=== PATIENT | male | born 1960 | race Caucasian/White ===

== ENCOUNTER → 2016-12-26 | Outpatient (REF) | payer SELFPAY ==
[2016-12-26 20:55] LABS: FERRITIN 613 NG/ML (26-388)
== END ==
LOC: M LAB REF 20:02
PROVIDERS: ATTEND Orthopaedic Surgery
DX: Z01.818 Encounter for other preprocedural examination (principal)

== ENCOUNTER → 2017-01-11 | Outpatient (REF) | payer SELFPAY ==
[2017-01-11 11:40] LABS: INR 3.85
== END ==
LOC: M SHH 10:53
PROVIDERS: ATTEND Orthopaedic Surgery
DX: Z51.81 Encounter for therapeutic drug level monitoring (principal); Z79.01 Long term (current) use of anticoagulants

== ENCOUNTER → 2017-01-15 | Outpatient (REF) | payer SELFPAY ==
[2017-01-15 10:17] LABS: INR 1.38
== END ==
LOC: M LAB REF 09:47 → M SHH 09:47
PROVIDERS: ATTEND Orthopaedic Surgery
DX: Z51.81 Encounter for therapeutic drug level monitoring (principal)

== ENCOUNTER → 2017-01-18 | Outpatient (REF) | payer SELFPAY ==
[2017-01-18 11:33] LABS: INR 1.22
== END ==
LOC: M SHH 11:11
PROVIDERS: ATTEND Orthopaedic Surgery
DX: Z51.81 Encounter for therapeutic drug level monitoring (principal); Z79.01 Long term (current) use of anticoagulants

== ENCOUNTER → 2017-01-22 | Outpatient (REF) | payer SELFPAY ==
[2017-01-22 11:08] LABS: INR 1.63
== END ==
LOC: M SHH 10:41
PROVIDERS: ATTEND Orthopaedic Surgery
DX: Z51.81 Encounter for therapeutic drug level monitoring (principal); Z79.01 Long term (current) use of anticoagulants

== ENCOUNTER → 2017-01-25 | Outpatient (REF) | payer SELFPAY ==
[2017-01-25 11:17] LABS: INR 2.03
== END ==
LOC: M SHH 10:41
PROVIDERS: ATTEND Orthopaedic Surgery
DX: Z51.81 Encounter for therapeutic drug level monitoring (principal); Z79.01 Long term (current) use of anticoagulants

== ENCOUNTER → 2017-01-29 | Outpatient (REF) | payer SELFPAY ==
[2017-01-29 12:56] LABS: INR 1.8
== END ==
LOC: M SHH 11:52
PROVIDERS: ATTEND Orthopaedic Surgery
DX: Z51.81 Encounter for therapeutic drug level monitoring (principal); Z79.01 Long term (current) use of anticoagulants

== ENCOUNTER → 2017-02-01 | Outpatient (REF) | payer SELFPAY ==
[2017-02-01 11:31] LABS: INR 1.79
== END ==
LOC: M LAB REF 10:53 → M SHH 10:53
PROVIDERS: ATTEND Orthopaedic Surgery
DX: Z51.81 Encounter for therapeutic drug level monitoring (principal); Z79.01 Long term (current) use of anticoagulants

== ENCOUNTER → 2017-02-05 | Outpatient (REF) | payer SELFPAY ==
[2017-02-05 13:23] LABS: INR 2.1
== END ==
LOC: M SHH 12:47
PROVIDERS: ATTEND Orthopaedic Surgery
DX: Z79.899 Other long term (current) drug therapy (principal)

== ENCOUNTER → 2017-02-08 | Outpatient (REF) | payer SELFPAY ==
[2017-02-08 10:20] LABS: INR 1.63
== END ==
LOC: M SHH 10:03
PROVIDERS: ATTEND Orthopaedic Surgery
DX: Z51.81 Encounter for therapeutic drug level monitoring (principal); Z79.01 Long term (current) use of anticoagulants

== ENCOUNTER → 2017-02-12 | Outpatient (REF) | payer SELFPAY | LOC: M SHH 13:16 | PROVIDERS: ATTEND Orthopaedic Surgery | DX: Z51.81 Encounter for therapeutic drug level monitoring (principal); Z79.01 Long term (current) use of anticoagulants ==

== ENCOUNTER → 2021-08-01 | Outpatient (CLI) | payer SELFPAY ==
--- NOTE | 2021-08-01 10:38 | REP ---
INDICATION: PERSISTENT COUGH COMPARISON: None. TECHNIQUE: PA and lateral. FINDINGS: Ill-defined right perihilar/infrahilar opacities suggesting right middle lobe and possibly right lower lobe infiltrate. No effusion. No pneumothorax. Cardiac silhouette normal. Skeletal structures intact.. IMPRESSION: Ill-defined right perihilar/infrahilar infiltrate. No prior examinations are available for comparison. Correlation with auscultation is recommended along with follow-up to resolution. <Electronically signed by Javier Evans > 08/01/21 0024
== END ==
LOC: M ADAMS 10:13
PROVIDERS: ATTEND Physician Assistant
DX: R91.8 Other nonspecific abnormal finding of lung field (principal); R05 Cough

== ENCOUNTER → 2021-09-05 | Outpatient (CLI) | payer SELFPAY ==
--- NOTE | 2021-09-05 10:34 | REP ---
INDICATION: PNEUMONIA OF RIGHT LOWER LOBE DUE TO INFECTIOUS ORGANISM. COMPARISON: 08/01/2021 TECHNIQUE: PA and lateral FINDINGS: The superior mediastinal structures are midline. The cardiac silhouette is unremarkable in size, shape, and position. The diaphragmatic surfaces of the lungs are regular, and the costophrenic angles are clear. The pulmonary farah are clear. The imaged osseous structures are intact. IMPRESSION: There is no acute cardiopulmonary disease. <Electronically signed by Zeus Hawthorne > 09/05/21 1036
== END ==
LOC: M ADAMS 09:43
PROVIDERS: ATTEND Physician Assistant
DX: J18.9 Pneumonia, unspecified organism (principal)

== ENCOUNTER → 2021-09-05 | Outpatient (REF) | payer SELFPAY ==
[2021-09-05 13:05] LABS: HEMATOCRIT 40.9 % (42.0-52.0); MEAN CORPUSCULAR HEMOGLOBIN 30.5 pg (27.0-33.0); MEAN CORPUSCULAR HGB CONC 34.2 g/dl (32.0-36.5); MEAN CORPUSCULAR VOLUME 89.1 fl (80.0-96.0); PLATELET COUNT, AUTOMATED 223 10^3/uL (150-450); RED BLOOD COUNT 4.59 10^6/uL (4.30-6.10); WHITE BLOOD COUNT 5.5 10^3/uL (4.0-10.0)
[2021-09-05 13:23] LABS: HEMOGLOBIN A1c 13.3 %
[2021-09-05 13:45] LABS: ALBUMIN 3.9 GM/DL (3.2-5.2); ALT/SGPT 19 U/L (12-78); BILIRUBIN,TOTAL 1.2 MG/DL (0.2-1.0); BLOOD UREA NITROGEN 12 MG/DL (7-18); CALCIUM LEVEL 9.6 MG/DL (8.5-10.1); CARBON DIOXIDE LEVEL 27 MEQ/L (21-32); CHLORIDE LEVEL 103 MEQ/L (98-107); CHOLESTEROL LEVEL 307 MG/DL (<200); CHOLESTEROL RISK RATIO 7.487 (<5); CREATININE FOR GFR 0.64 MG/DL (0.70-1.30); GLOMERULAR FILTRATION RATE > 60.0 (>56); GLUCOSE, FASTING 388 MG/DL (70-100); HDL CHOLESTEROL 41 MG/DL (>40); LDL CHOLESTEROL 231 MG/DL (<100); NON-HDL-C 266 MG/DL; POTASSIUM SERUM 4.2 MEQ/L (3.5-5.1); SODIUM LEVEL 136 MEQ/L (136-145); TOTAL PROTEIN 6.9 GM/DL (6.4-8.2); TRIGLYCERIDES LEVEL 173 MG/DL (<150)
== END ==
LOC: M SFHCADAM 09:29
PROVIDERS: ATTEND Physician Assistant
DX: Z00.00 Encounter for general adult medical examination without abnormal findings (principal); Z86.39 Personal history of other endocrine, nutritional and metabolic disease

== ENCOUNTER → 2022-04-24 | Outpatient (REF) | payer SELFPAY ==
[2022-04-24 17:18] LABS: ALBUMIN 3.9 GM/DL (3.2-5.2); ALT/SGPT 20 U/L (12-78); BILIRUBIN,TOTAL 0.9 MG/DL (0.2-1.0); BLOOD UREA NITROGEN 12 MG/DL (7-18); CALCIUM LEVEL 9.1 MG/DL (8.5-10.1); CARBON DIOXIDE LEVEL 25 MEQ/L (21-32); CHLORIDE LEVEL 104 MEQ/L (98-107); CHOLESTEROL LEVEL 235 MG/DL (<200); CREATININE FOR GFR 0.45 MG/DL (0.70-1.30); GLOMERULAR FILTRATION RATE > 60.0 (>56); GLUCOSE, FASTING 127 MG/DL (70-100); HDL CHOLESTEROL 47 MG/DL (>40); LDL CHOLESTEROL 167 MG/DL (<100); NON-HDL-C 188 MG/DL; POTASSIUM SERUM 3.8 MEQ/L (3.5-5.1); SODIUM LEVEL 140 MEQ/L (136-145); TOTAL PROTEIN 6.6 GM/DL (6.4-8.2); TRIGLYCERIDES LEVEL 105 MG/DL (<150)
[2022-04-24 20:57] LABS: HEMOGLOBIN A1c 8.8 %
== END ==
LOC: M SFHCADAM 12:51
PROVIDERS: ATTEND Physician Assistant
DX: E78.2 Mixed hyperlipidemia (principal); E11.65 Type 2 diabetes mellitus with hyperglycemia; Z12.5 Encounter for screening for malignant neoplasm of prostate
CPT/HCPCS: 80053; 80061; 83036; G0103

== ENCOUNTER → 2022-10-05 | Outpatient (CLI) | payer SELFPAY ==
[~2022-10-05] MED LIST: METF500T13; OMEP40CA4 PO; TAMS1CAP17
== END ==
LOC: M LABSMTC 11:00
PROVIDERS: ATTEND Anesthesiology
DX: Z01.812 Encounter for preprocedural laboratory examination (principal); Z11.52 Encounter for screening for COVID-19

== ENCOUNTER 2022-10-10 07:01 | Day surgery (SDC) | payer SELFPAY ==
[~2022-10-10] VITALS: Ht 180.3 cm; Wt 71.6 kg
[~2022-10-10 07:01] MED LIST changes: +NS 1,000 ML IV ONE; +fentaNYL 100 MCG/2 ML INJECTION As Ordered ONE; +propofoL 500 MG/50 ML VIAL As Ordered ONE
[2022-10-10 08:37] VITALS: BP 110/65
== END 2022-10-10 08:37 | disposition home or self-care (01) ==
LOC: M OPP 07:01
PROVIDERS: ATTEND Internal Medicine Gastroenterology
DX: Z12.11 Encounter for screening for malignant neoplasm of colon (principal); K63.5 Polyp of colon; K57.30 Diverticulosis of large intestine without perforation or abscess without bleeding; K64.4 Residual hemorrhoidal skin tags; K64.8 Other hemorrhoids; K22.70 Barrett's esophagus without dysplasia; K31.A19 Gastric intestinal metaplasia without dysplasia, unspecified site; K22.89 Other specified disease of esophagus; K21.00 Gastro-esophageal reflux disease with esophagitis, without bleeding
CPT/HCPCS: 43239; 45380; 88305; J3010

== ENCOUNTER 2023-01-22 08:38 | Inpatient (IN) | payer SELFPAY ==
[~2023-01-22] VITALS: Ht 180.3 cm; Wt 71.5 kg
[~2023-01-22 08:38] MED LIST changes: -METF500T13; +METF500T13 PO; -NS 1,000 ML IV ONE; -fentaNYL 100 MCG/2 ML INJECTION As Ordered ONE; -propofoL 500 MG/50 ML VIAL As Ordered ONE
[2023-01-22] MEDS ORDERED: FLUTISP NARES (09:03)
[2023-01-22] MEDS ORDERED: TAMS1CAP17 PO (09:03)
[2023-01-22] MEDS ORDERED: VANCOMYCIN HCL 1,500 MG in IV FLUID PLACE HOLDER 1 EA IV ONE (12:20)
[2023-01-22] MEDS ORDERED: NS 1,000 ML IV ONE (12:20)
[2023-01-22] MEDS ORDERED: VANCOMYCIN HCL 750 MG, VIAL MATE ADAPTER 1 EACH in D5W 250 ML IV ONE ×6 (12:30)
[2023-01-22] MEDS ORDERED: BOOSTRIX/ADACEL VACCINE (DIPHTH/PERTUSS/ACELL/TETANUS) 0.5ML SYR IM ONE (12:35)
[2023-01-22 12:50] LABS: BASO # 0.1 10^3/uL (0.0-0.2); BASO % 0.5 % (0.0-1.0); EOS % 0.2 % (0.0-3.0); HEMATOCRIT 35.4 % (42.0-52.0); LYMPH % 9.6 % (24.0-44.0); MEAN CORPUSCULAR HEMOGLOBIN 29.8 pg (27.0-33.0); MEAN CORPUSCULAR HGB CONC 33.9 g/dl (32.0-36.5); MEAN CORPUSCULAR VOLUME 87.8 fl (80.0-96.0); MONO # 1.2 10^3/uL (0.0-0.8); MONO % 11.3 % (2.0-8.0); NEUTROPHILS % 77.7 % (36.0-66.0); PLATELET COUNT, AUTOMATED 221 10^3/uL (150-450); RED BLOOD COUNT 4.03 10^6/uL (4.30-6.10); WHITE BLOOD COUNT 10.2 10^3/uL (4.0-10.0)
[2023-01-22 13:00] LABS: ERYTHROCYTE SEDIMENTATION RATE 89 mm/hr (0-20)
[2023-01-22 13:07] LABS: INR 1.13; PROTHROMBIN TIME 14.7 SECONDS (12.5-14.5)
[2023-01-22 13:08] LABS: PARTIAL THROMBOPLASTIN TIME 29.7 SECONDS (24.8-34.2)
[2023-01-22 13:17] LABS: ALBUMIN 2.7 G/DL (3.2-5.2); ALKALINE PHOSPHATASE 102 U/L (46-116); ALT/SGPT 27 U/L (7.0-40); AST/SGOT 19 U/L (<34); BILIRUBIN,DIRECT 0.3 MG/DL (<0.4); BILIRUBIN,TOTAL 0.8 MG/DL (0.3-1.2); BLOOD UREA NITROGEN 21 MG/DL (9-23); CALCIUM LEVEL 7.8 MG/DL (8.3-10.6); CARBON DIOXIDE LEVEL 30 MMOL/L (20-31); CHLORIDE LEVEL 101 MMOL/L (98-107); CREATININE FOR GFR 0.56 MG/DL (0.70-1.30); GLOMERULAR FILTRATION RATE > 60.0 (>49); GLUCOSE, FASTING 331 MG/DL (74-106); POTASSIUM SERUM 3.9 MMOL/L (3.5-5.1); SODIUM LEVEL 138 MMOL/L (136-145); TOTAL PROTEIN 5.9 G/DL (5.7-8.2)
[2023-01-22 13:24] LABS: RSV AMPLIFICATION NEGATIVE (NEGATIVE)
[2023-01-22] MEDS ORDERED: GLUCAGON INJ 1MG VIAL SC PRN (15:45)
[2023-01-22] MEDS ORDERED: GLUCOSE 4GM CHEW TABLET PO PRN (15:45)
[2023-01-22] MEDS ORDERED: PERCOCET 5MG/325MG TAB PO PRN (15:55)
[2023-01-22] MEDS ORDERED: EQL50TAB2 PO (16:16)
[2023-01-22] MEDS ORDERED: HOME MED LIST COMPLETE! XX SCH (16:20)
[2023-01-22] MEDS: PIPERACILLIN/TAZOBACTAM SOD 3.375 GM in D5W MINI-BAG PLUS 50 ML IV SCH ×2 (16:52→23:59)
[2023-01-22 18:15] VITALS: BP 127/73
[2023-01-22 18:26] LABS: CHOLESTEROL RISK RATIO 4.45 (<5); HDL CHOLESTEROL 27.6 MG/DL (>40); LDL CHOLESTEROL 75.8 MG/DL (<100); NON-HDL-C 95.4 MG/DL
[2023-01-22] MEDS: TAMSULOSIN 0.4 MG CAP PO SCH (18:40)
[2023-01-22] MEDS: ATORVASTATIN 20 MG TAB PO SCH (18:40)
[2023-01-22] MEDS: OMEPRAZOLE 20MG CAP PO SCH (18:40)
[2023-01-22] MEDS: INSULIN LISPRO (NovoLOG) PER UNIT SC SCH ×2 (18:40→21:00)
[2023-01-22 21:08] VITALS: BP 125/69
[2023-01-22] MEDS: VANCOMYCIN HCL 750 MG, VIAL MATE ADAPTER 1 EACH in D5W 250 ML IV SCH (21:18)
[2023-01-22] MEDS: ENOXAPARIN 40MG/0.4ML SYRINGE (J1650 PER 10MG) SC SCH (21:19)
[2023-01-22] MEDS: LEVEMIR (INSULIN DETEMIR) 1 UNITS/0.01ML SC SCH (21:19)
[2023-01-23] MEDS: PIPERACILLIN/TAZOBACTAM SOD 3.375 GM in D5W MINI-BAG PLUS 50 ML IV SCH ×4 (04:40→23:55)
[2023-01-23] MEDS: VANCOMYCIN HCL 750 MG, VIAL MATE ADAPTER 1 EACH in D5W 250 ML IV SCH (05:55)
[2023-01-23 06:01] VITALS: BP 111/62
[2023-01-23 06:47] LABS: HEMATOCRIT 32.8 % (42.0-52.0); HEMOGLOBIN 10.9 g/dl (13.5-17.5); MEAN CORPUSCULAR HEMOGLOBIN 29.9 pg (27.0-33.0); MEAN CORPUSCULAR HGB CONC 33.2 g/dl (32.0-36.5); MEAN CORPUSCULAR VOLUME 90.1 fl (80.0-96.0); PLATELET COUNT, AUTOMATED 182 10^3/uL (150-450); RED BLOOD COUNT 3.64 10^6/uL (4.30-6.10); WHITE BLOOD COUNT 10.1 10^3/uL (4.0-10.0)
[2023-01-23] MEDS: ACETAMINOPHEN TAB 650MG DOSE (2X325MG) PO PRN ×2 (06:49→20:36)
[2023-01-23 07:15] LABS: BLOOD UREA NITROGEN 12 MG/DL (9-23); CARBON DIOXIDE LEVEL 26 MMOL/L (20-31); CHLORIDE LEVEL 103 MMOL/L (98-107); CREATININE FOR GFR 0.48 MG/DL (0.70-1.30); GLOMERULAR FILTRATION RATE > 60.0 (>49); GLUCOSE, FASTING 199 MG/DL (74-106); POTASSIUM SERUM 3.5 MMOL/L (3.5-5.1); SODIUM LEVEL 137 MMOL/L (136-145)
[2023-01-23] MEDS: ATORVASTATIN 20 MG TAB PO SCH (07:55)
[2023-01-23] MEDS: TAMSULOSIN 0.4 MG CAP PO SCH (07:55)
[2023-01-23] MEDS: OMEPRAZOLE 20MG CAP PO SCH (07:55)
[2023-01-23] MEDS: INSULIN LISPRO (NovoLOG) PER UNIT SC SCH ×4 (07:55→20:23)
[2023-01-23 14:00] VITALS: BP 118/69
[2023-01-23] MEDS: VANCOMYCIN HCL 1,000 MG, VIAL MATE ADAPTER 1 EACH in D5W 250 ML IV SCH ×2 (14:41→22:25)
[2023-01-23 20:14] VITALS: BP 142/70
[2023-01-23] MEDS: ENOXAPARIN 40MG/0.4ML SYRINGE (J1650 PER 10MG) SC SCH (20:38)
[2023-01-23] MEDS: LEVEMIR (INSULIN DETEMIR) 1 UNITS/0.01ML SC SCH (20:39)
[2023-01-23] MEDS ORDERED: ACETAMINOPHEN 325 MG TAB PO ONE (23:00)
[2023-01-24] MEDS: PIPERACILLIN/TAZOBACTAM SOD 3.375 GM in D5W MINI-BAG PLUS 50 ML IV SCH ×4 (05:22→22:57)
[2023-01-24 05:41] VITALS: BP 114/64
[2023-01-24 06:22] LABS: BASO # 0.1 10^3/uL (0.0-0.2); BASO % 0.4 % (0.0-1.0); EOS # 0.3 10^3/uL (0.0-0.5); EOS % 2.4 % (0.0-3.0); HEMOGLOBIN 10.5 g/dl (13.5-17.5); LYMPH # 1.7 10^3/uL (1.5-5.0); LYMPH % 13.6 % (24.0-44.0); MEAN CORPUSCULAR HEMOGLOBIN 29.9 pg (27.0-33.0); MEAN CORPUSCULAR HGB CONC 33.9 g/dl (32.0-36.5); MEAN CORPUSCULAR VOLUME 88.3 fl (80.0-96.0); MONO % 7.6 % (2.0-8.0); NEUTROPHILS # 9.4 10^3/uL (1.5-8.5); NEUTROPHILS % 75.4 % (36.0-66.0); PLATELET COUNT, AUTOMATED 201 10^3/uL (150-450); RED BLOOD COUNT 3.51 10^6/uL (4.30-6.10); WHITE BLOOD COUNT 12.4 10^3/uL (4.0-10.0)
[2023-01-24] MEDS: VANCOMYCIN HCL 1,000 MG, VIAL MATE ADAPTER 1 EACH in D5W 250 ML IV SCH (06:36)
[2023-01-24 06:52] LABS: BLOOD UREA NITROGEN 12 MG/DL (9-23); CALCIUM LEVEL 8.1 MG/DL (8.3-10.6); CARBON DIOXIDE LEVEL 30 MMOL/L (20-31); CHLORIDE LEVEL 103 MMOL/L (98-107); CREATININE FOR GFR 0.64 MG/DL (0.70-1.30); GLOMERULAR FILTRATION RATE > 60.0 (>49); GLUCOSE, FASTING 147 MG/DL (74-106); MAGNESIUM LEVEL 1.6 MG/DL (1.8-2.4); POTASSIUM SERUM 3.2 MMOL/L (3.5-5.1); SODIUM LEVEL 139 MMOL/L (136-145)
[2023-01-24] MEDS ORDERED: MAG SULF 1GM/100ML (MAG RUN) 1 GM in IV 1 EA IV ONE (08:00)
[2023-01-24] MEDS ORDERED: POTASSIUM CHLORIDE 10MEQ SR TABLET PO ONE (08:00)
[2023-01-24] MEDS: INSULIN LISPRO (NovoLOG) PER UNIT SC SCH ×5 (08:46→21:00)
[2023-01-24] MEDS: ATORVASTATIN 20 MG TAB PO SCH (08:47)
[2023-01-24] MEDS: TAMSULOSIN 0.4 MG CAP PO SCH (08:47)
[2023-01-24] MEDS: OMEPRAZOLE 20MG CAP PO SCH (08:47)
[2023-01-24 14:00] VITALS: BP 124/72
[2023-01-24] MEDS ORDERED: LEVEMIR (INSULIN DETEMIR) 1 UNITS/0.01ML SC SCH (21:00)
[2023-01-24 21:34] VITALS: BP 124/69
[2023-01-25] VITALS (9 sets, daily range): BP systolic 88–143; BP diastolic 42–81
[2023-01-25] MEDS: PIPERACILLIN/TAZOBACTAM SOD 3.375 GM in D5W MINI-BAG PLUS 50 ML IV SCH ×4 (05:40→23:48)
[2023-01-25 06:11] LABS: BASO % 0.3 % (0.0-1.0); EOS # 0.6 10^3/uL (0.0-0.5); EOS % 5.1 % (0.0-3.0); HEMATOCRIT 31.7 % (42.0-52.0); HEMOGLOBIN 10.4 g/dl (13.5-17.5); LYMPH # 1.3 10^3/uL (1.5-5.0); LYMPH % 12.1 % (24.0-44.0); MEAN CORPUSCULAR HEMOGLOBIN 29.2 pg (27.0-33.0); MEAN CORPUSCULAR HGB CONC 32.8 g/dl (32.0-36.5); MONO # 0.9 10^3/uL (0.0-0.8); MONO % 8.4 % (2.0-8.0); NEUTROPHILS # 8.1 10^3/uL (1.5-8.5); NEUTROPHILS % 73.2 % (36.0-66.0); PLATELET COUNT, AUTOMATED 243 10^3/uL (150-450); RED BLOOD COUNT 3.56 10^6/uL (4.30-6.10)
[2023-01-25 06:34] LABS: BLOOD UREA NITROGEN 12 MG/DL (9-23); CALCIUM LEVEL 8.1 MG/DL (8.3-10.6); CARBON DIOXIDE LEVEL 30 MMOL/L (20-31); CHLORIDE LEVEL 104 MMOL/L (98-107); CREATININE FOR GFR 0.76 MG/DL (0.70-1.30); GLOMERULAR FILTRATION RATE > 60.0 (>49); GLUCOSE, FASTING 240 MG/DL (74-106); MAGNESIUM LEVEL 1.7 MG/DL (1.8-2.4); POTASSIUM SERUM 3.6 MMOL/L (3.5-5.1); SODIUM LEVEL 140 MMOL/L (136-145)
[2023-01-25] MEDS: INSULIN LISPRO (NovoLOG) PER UNIT SC SCH ×7 (07:30→22:08)
[2023-01-25] MEDS: OMEPRAZOLE 20MG CAP PO SCH (07:57)
[2023-01-25] MEDS: TAMSULOSIN 0.4 MG CAP PO SCH (07:57)
[2023-01-25] MEDS: ATORVASTATIN 20 MG TAB PO SCH (07:57)
[2023-01-25] MEDS ORDERED: MAG SULF 1GM/100ML (MAG RUN) 1 GM in IV 1 EA IV ONE (08:00)
[2023-01-25] MEDS ORDERED: BUPIVACAINE HCL 0.5% 30ML VIAL As Ordered ONE (09:50)
[2023-01-25] MEDS ORDERED: LIDOCAINE 1% MDV 20ML VIAL As Ordered ONE (09:50)
[2023-01-25] MEDS ORDERED: fentaNYL 100 MCG/2 ML INJECTION As Ordered ONE (09:58)
[2023-01-25] MEDS ORDERED: MIDAZOLAM INJ 2MG/2ML VIAL As Ordered ONE (09:58)
[2023-01-25] MEDS ORDERED: ONDANSETRON 4MG 2ML VIAL As Ordered ONE (11:10)
[2023-01-25] MEDS ORDERED: propofoL 200 MG/20 ML VIAL As Ordered ONE (11:10)
[2023-01-25] MEDS ORDERED: LIDOCAINE 2% 100MG/5ML SDV (FOR ANES.) As Ordered ONE (11:10)
[2023-01-25] MEDS ORDERED: ZOSYN 3.375GM VIAL As Ordered ONE (11:17)
[2023-01-25] MEDS ORDERED: ACETAMINOPHEN 1000MG 100ML IV BAG As Ordered ONE (11:41)
[2023-01-25] MEDS ORDERED: LR 1,000 ML IV SCH (12:10)
[2023-01-25] MEDS ORDERED: HYDROMORPHONE HCL 0.5 MG/ 0.5 ML SYRINGE IV PRN (12:10)
[2023-01-25] MEDS ORDERED: ONDANSETRON 4MG 2ML VIAL IV PRN (12:10)
[2023-01-25] MEDS ORDERED: oxyCODONE 5MG TAB PO PRN (12:10)
[2023-01-25] MEDS ORDERED: fentaNYL 100 MCG/2 ML INJECTION IV PRN (12:10)
[2023-01-25] MEDS ORDERED: NS 1,000 ML IV ONE (16:40)
[2023-01-25 17:13] LABS: BASO # 0.1 10^3/uL (0.0-0.2); BASO % 0.5 % (0.0-1.0); EOS # 0.7 10^3/uL (0.0-0.5); EOS % 7.6 % (0.0-3.0); HEMATOCRIT 30.5 % (42.0-52.0); LYMPH # 1.9 10^3/uL (1.5-5.0); LYMPH % 21.1 % (24.0-44.0); MEAN CORPUSCULAR HEMOGLOBIN 29.5 pg (27.0-33.0); MEAN CORPUSCULAR HGB CONC 32.8 g/dl (32.0-36.5); MONO # 0.8 10^3/uL (0.0-0.8); MONO % 8.9 % (2.0-8.0); NEUTROPHILS # 5.6 10^3/uL (1.5-8.5); PLATELET COUNT, AUTOMATED 243 10^3/uL (150-450); RED BLOOD COUNT 3.39 10^6/uL (4.30-6.10); WHITE BLOOD COUNT 9.2 10^3/uL (4.0-10.0)
[2023-01-25 17:32] LABS: BLOOD UREA NITROGEN 14 MG/DL (9-23); CALCIUM LEVEL 7.9 MG/DL (8.3-10.6); CARBON DIOXIDE LEVEL 30 MMOL/L (20-31); CHLORIDE LEVEL 106 MMOL/L (98-107); CREATININE FOR GFR 0.71 MG/DL (0.70-1.30); GLOMERULAR FILTRATION RATE > 60.0 (>49); GLUCOSE, FASTING 201 MG/DL (74-106); MAGNESIUM LEVEL 1.8 MG/DL (1.8-2.4); POTASSIUM SERUM 3.5 MMOL/L (3.5-5.1); SODIUM LEVEL 141 MMOL/L (136-145)
[2023-01-25] MEDS ORDERED: LEVEMIR (INSULIN DETEMIR) 1 UNITS/0.01ML SC SCH (21:00)
[2023-01-26 05:09] VITALS: BP 136/77
[2023-01-26] MEDS: PIPERACILLIN/TAZOBACTAM SOD 3.375 GM in D5W MINI-BAG PLUS 50 ML IV SCH ×4 (05:12→23:11)
[2023-01-26 05:57] LABS: BASO # 0.1 10^3/uL (0.0-0.2); BASO % 0.6 % (0.0-1.0); EOS # 0.9 10^3/uL (0.0-0.5); EOS % 7.8 % (0.0-3.0); HEMATOCRIT 30.5 % (42.0-52.0); LYMPH # 1.6 10^3/uL (1.5-5.0); LYMPH % 14.5 % (24.0-44.0); MEAN CORPUSCULAR HEMOGLOBIN 29.7 pg (27.0-33.0); MEAN CORPUSCULAR HGB CONC 32.8 g/dl (32.0-36.5); MEAN CORPUSCULAR VOLUME 90.5 fl (80.0-96.0); MONO # 0.9 10^3/uL (0.0-0.8); MONO % 8.3 % (2.0-8.0); NEUTROPHILS # 7.7 10^3/uL (1.5-8.5); NEUTROPHILS % 67.8 % (36.0-66.0); PLATELET COUNT, AUTOMATED 257 10^3/uL (150-450); RED BLOOD COUNT 3.37 10^6/uL (4.30-6.10); WHITE BLOOD COUNT 11.3 10^3/uL (4.0-10.0)
[2023-01-26 06:22] LABS: BLOOD UREA NITROGEN 12 MG/DL (9-23); CARBON DIOXIDE LEVEL 30 MMOL/L (20-31); CHLORIDE LEVEL 105 MMOL/L (98-107); CREATININE FOR GFR 0.79 MG/DL (0.70-1.30); GLOMERULAR FILTRATION RATE > 60.0 (>49); GLUCOSE, FASTING 73 MG/DL (74-106); MAGNESIUM LEVEL 1.8 MG/DL (1.8-2.4); POTASSIUM SERUM 3.8 MMOL/L (3.5-5.1); SODIUM LEVEL 142 MMOL/L (136-145)
[2023-01-26] MEDS: INSULIN LISPRO (NovoLOG) PER UNIT SC SCH ×6 (07:30→21:00)
[2023-01-26] MEDS: TAMSULOSIN 0.4 MG CAP PO SCH (09:01)
[2023-01-26] MEDS: OMEPRAZOLE 20MG CAP PO SCH (09:01)
[2023-01-26] MEDS: ATORVASTATIN 20 MG TAB PO SCH (09:01)
[2023-01-26 14:30] VITALS: BP 142/70
[2023-01-26] MEDS: ACETAMINOPHEN TAB 650MG DOSE (2X325MG) PO PRN (15:06)
[2023-01-26] MEDS: VANCOMYCIN HCL 1,000 MG, VIAL MATE ADAPTER 1 EACH in NS 250 ML IV SCH (15:52)
[2023-01-26] MEDS ORDERED: INSULIN LISPRO (NovoLOG) PER UNIT SC SCH (17:30)
[2023-01-26] MEDS ORDERED: VANCOMYCIN HCL 500 MG in D5W MINI-BAG PLUS 100 ML IV ONE (18:00)
[2023-01-26] MEDS ORDERED: LEVEMIR (INSULIN DETEMIR) 1 UNITS/0.01ML SC ONE (21:00)
[2023-01-26 21:34] VITALS: BP 110/58
[2023-01-26] MEDS: ENOXAPARIN 40MG/0.4ML SYRINGE (J1650 PER 10MG) SC SCH (21:41)
[2023-01-27] MEDS: VANCOMYCIN HCL 1,000 MG, VIAL MATE ADAPTER 1 EACH in NS 250 ML IV SCH (00:24)
[2023-01-27] MEDS: PIPERACILLIN/TAZOBACTAM SOD 3.375 GM in D5W MINI-BAG PLUS 50 ML IV SCH ×4 (05:02→23:08)
[2023-01-27 06:00] VITALS: BP 130/74
[2023-01-27 07:54] LABS: BASO # 0.1 10^3/uL (0.0-0.2); BASO % 0.5 % (0.0-1.0); EOS # 0.8 10^3/uL (0.0-0.5); HEMATOCRIT 29.7 % (42.0-52.0); HEMOGLOBIN 9.6 g/dl (13.5-17.5); LYMPH # 1.4 10^3/uL (1.5-5.0); LYMPH % 10.6 % (24.0-44.0); MEAN CORPUSCULAR HEMOGLOBIN 29.4 pg (27.0-33.0); MEAN CORPUSCULAR HGB CONC 32.3 g/dl (32.0-36.5); MEAN CORPUSCULAR VOLUME 91.1 fl (80.0-96.0); MONO # 1.1 10^3/uL (0.0-0.8); MONO % 8.3 % (2.0-8.0); NEUTROPHILS # 9.5 10^3/uL (1.5-8.5); NEUTROPHILS % 73.7 % (36.0-66.0); PLATELET COUNT, AUTOMATED 275 10^3/uL (150-450); RED BLOOD COUNT 3.26 10^6/uL (4.30-6.10); WHITE BLOOD COUNT 12.9 10^3/uL (4.0-10.0)
[2023-01-27 07:57] LABS: VANCOMYCIN LEVEL TROUGH 17.6 UG/ML (10.0-20.0)
[2023-01-27 07:58] LABS: BLOOD UREA NITROGEN 12 MG/DL (9-23); CALCIUM LEVEL 7.8 MG/DL (8.3-10.6); CARBON DIOXIDE LEVEL 30 MMOL/L (20-31); CHLORIDE LEVEL 103 MMOL/L (98-107); CREATININE FOR GFR 0.74 MG/DL (0.70-1.30); GLOMERULAR FILTRATION RATE > 60.0 (>49); GLUCOSE, FASTING 86 MG/DL (74-106); MAGNESIUM LEVEL 1.7 MG/DL (1.8-2.4); SODIUM LEVEL 140 MMOL/L (136-145)
[2023-01-27] MEDS ORDERED: MAG SULF 1GM/100ML (MAG RUN) 1 GM in IV 1 EA IV ONE (08:25)
[2023-01-27] MEDS: ATORVASTATIN 20 MG TAB PO SCH (08:51)
[2023-01-27] MEDS: OMEPRAZOLE 20MG CAP PO SCH (08:51)
[2023-01-27] MEDS: metFORMIN (GLUCOPHAGE) 500MG TAB PO SCH (08:51)
[2023-01-27] MEDS: TAMSULOSIN 0.4 MG CAP PO SCH (08:52)
[2023-01-27] MEDS: VANCOMYCIN HCL 1,000 MG, VIAL MATE ADAPTER 1 EACH in D5W 250 ML IV SCH ×2 (10:39→21:36)
[2023-01-27 14:00] VITALS: BP 144/82
[2023-01-27] MEDS: LACTOBACILLUS ACIDOPHILUS CAP (BACID) PO SCH (17:05)
[2023-01-27] MEDS: INSULIN LISPRO (NovoLOG) PER UNIT SC SCH (21:00)
[2023-01-27] MEDS: ENOXAPARIN 40MG/0.4ML SYRINGE (J1650 PER 10MG) SC SCH (21:35)
[2023-01-27] MEDS: LEVEMIR (INSULIN DETEMIR) 1 UNITS/0.01ML SC SCH (21:35)
[2023-01-27 22:00] VITALS: BP 130/72
[2023-01-28] VITALS (7 sets, daily range): BP systolic 124–146; BP diastolic 70–78
[2023-01-28] MEDS: PIPERACILLIN/TAZOBACTAM SOD 3.375 GM in D5W MINI-BAG PLUS 50 ML IV SCH ×4 (04:34→23:22)
[2023-01-28 06:19] LABS: BASO # 0.1 10^3/uL (0.0-0.2); BASO % 0.4 % (0.0-1.0); EOS # 0.6 10^3/uL (0.0-0.5); EOS % 5.4 % (0.0-3.0); HEMATOCRIT 29.4 % (42.0-52.0); HEMOGLOBIN 9.5 g/dl (13.5-17.5); LYMPH # 1.1 10^3/uL (1.5-5.0); MEAN CORPUSCULAR HEMOGLOBIN 29.5 pg (27.0-33.0); MEAN CORPUSCULAR HGB CONC 32.3 g/dl (32.0-36.5); MEAN CORPUSCULAR VOLUME 91.3 fl (80.0-96.0); MONO % 8.5 % (2.0-8.0); NEUTROPHILS # 8.5 10^3/uL (1.5-8.5); NEUTROPHILS % 74.8 % (36.0-66.0); PLATELET COUNT, AUTOMATED 277 10^3/uL (150-450); RED BLOOD COUNT 3.22 10^6/uL (4.30-6.10); WHITE BLOOD COUNT 11.4 10^3/uL (4.0-10.0)
[2023-01-28 07:03] LABS: BLOOD UREA NITROGEN 11 MG/DL (9-23); CALCIUM LEVEL 7.9 MG/DL (8.3-10.6); CARBON DIOXIDE LEVEL 29 MMOL/L (20-31); CHLORIDE LEVEL 105 MMOL/L (98-107); CREATININE FOR GFR 0.75 MG/DL (0.70-1.30); GLOMERULAR FILTRATION RATE > 60.0 (>49); GLUCOSE, FASTING 119 MG/DL (74-106); MAGNESIUM LEVEL 1.7 MG/DL (1.8-2.4); POTASSIUM SERUM 3.5 MMOL/L (3.5-5.1); SODIUM LEVEL 140 MMOL/L (136-145)
[2023-01-28] MEDS: TAMSULOSIN 0.4 MG CAP PO SCH (08:26)
[2023-01-28] MEDS: OMEPRAZOLE 20MG CAP PO SCH (08:26)
[2023-01-28] MEDS: LACTOBACILLUS ACIDOPHILUS CAP (BACID) PO SCH ×2 (08:26→18:00)
[2023-01-28] MEDS: ATORVASTATIN 20 MG TAB PO SCH (08:26)
[2023-01-28] MEDS: metFORMIN (GLUCOPHAGE) 500MG TAB PO SCH (08:27)
[2023-01-28] MEDS ORDERED: MAG SULF 1GM/100ML (MAG RUN) 1 GM in IV 1 EA IV ONE (09:00)
[2023-01-28] MEDS: VANCOMYCIN HCL 1,000 MG, VIAL MATE ADAPTER 1 EACH in D5W 250 ML IV SCH ×2 (10:10→21:39)
[2023-01-28] MEDS ORDERED: BUPIVACAINE HCL 0.5% 30ML VIAL As Ordered ONE (17:18)
[2023-01-28] MEDS ORDERED: LIDOCAINE 1% SDV 30ML VIAL As Ordered ONE (17:18)
[2023-01-28] MEDS ORDERED: MIDAZOLAM INJ 2MG/2ML VIAL As Ordered ONE (18:38)
[2023-01-28] MEDS ORDERED: fentaNYL 100 MCG/2 ML INJECTION As Ordered ONE (18:38)
[2023-01-28] MEDS ORDERED: propofoL 200 MG/20 ML VIAL As Ordered ONE (18:38)
[2023-01-28] MEDS: LEVEMIR (INSULIN DETEMIR) 1 UNITS/0.01ML SC SCH (21:00)
[2023-01-28] MEDS: INSULIN LISPRO (NovoLOG) PER UNIT SC SCH (21:00)
[2023-01-28] MEDS: ENOXAPARIN 40MG/0.4ML SYRINGE (J1650 PER 10MG) SC SCH (21:36)
[2023-01-29 00:15] VITALS: BP 132/74
[2023-01-29 02:00] VITALS: BP 140/80
[2023-01-29] MEDS: PIPERACILLIN/TAZOBACTAM SOD 3.375 GM in D5W MINI-BAG PLUS 50 ML IV SCH (04:49)
[2023-01-29] MEDS ORDERED: **hydrALAZINE** 10 MG TAB PO ONE (05:00)
[2023-01-29] MEDS ORDERED: CALCIUM CARBONATE 500 MG CHEW U/D PO ONE (05:00)
[2023-01-29 06:00] VITALS: BP 164/82
[2023-01-29 06:13] LABS: BASO # 0.1 10^3/uL (0.0-0.2); BASO % 0.6 % (0.0-1.0); EOS # 0.5 10^3/uL (0.0-0.5); EOS % 4.4 % (0.0-3.0); HEMATOCRIT 30.7 % (42.0-52.0); HEMOGLOBIN 9.9 g/dl (13.5-17.5); LYMPH # 0.9 10^3/uL (1.5-5.0); LYMPH % 7.4 % (24.0-44.0); MEAN CORPUSCULAR HEMOGLOBIN 29.4 pg (27.0-33.0); MEAN CORPUSCULAR HGB CONC 32.2 g/dl (32.0-36.5); MEAN CORPUSCULAR VOLUME 91.1 fl (80.0-96.0); MONO # 1.1 10^3/uL (0.0-0.8); MONO % 9.3 % (2.0-8.0); NEUTROPHILS # 8.8 10^3/uL (1.5-8.5); NEUTROPHILS % 77.3 % (36.0-66.0); PLATELET COUNT, AUTOMATED 332 10^3/uL (150-450); RED BLOOD COUNT 3.37 10^6/uL (4.30-6.10); WHITE BLOOD COUNT 11.4 10^3/uL (4.0-10.0)
[2023-01-29 06:44] LABS: BLOOD UREA NITROGEN 12 MG/DL (9-23); CARBON DIOXIDE LEVEL 27 MMOL/L (20-31); CHLORIDE LEVEL 104 MMOL/L (98-107); CREATININE FOR GFR 1.17 MG/DL (0.70-1.30); GLOMERULAR FILTRATION RATE > 60.0 (>49); GLUCOSE, FASTING 158 MG/DL (74-106); MAGNESIUM LEVEL 1.8 MG/DL (1.8-2.4); POTASSIUM SERUM 3.6 MMOL/L (3.5-5.1); SODIUM LEVEL 138 MMOL/L (136-145)
[2023-01-29 06:55] VITALS: BP 130/68
[2023-01-29] MEDS: ATORVASTATIN 20 MG TAB PO SCH (08:05)
[2023-01-29] MEDS: LACTOBACILLUS ACIDOPHILUS CAP (BACID) PO SCH ×2 (08:05→18:04)
[2023-01-29] MEDS: TAMSULOSIN 0.4 MG CAP PO SCH (08:06)
[2023-01-29] MEDS: OMEPRAZOLE 20MG CAP PO SCH (08:06)
[2023-01-29] MEDS: metFORMIN (GLUCOPHAGE) 500MG TAB PO SCH (08:06)
[2023-01-29] MEDS: ceFAZolin SOD 2 GM in IV 1 EA IV SCH ×2 (11:07→18:04)
[2023-01-29] MEDS: INSULIN LISPRO (NovoLOG) PER UNIT SC SCH ×3 (12:00→21:00)
[2023-01-29] MEDS: CALCIUM CARBONATE 500 MG CHEW U/D PO PRN ×2 (12:40→21:23)
[2023-01-29 14:00] VITALS: BP 142/78
[2023-01-29] MEDS ORDERED: ONDANSETRON 4MG 2ML VIAL IV ONE (14:20)
[2023-01-29] MEDS: ACETAMINOPHEN TAB 650MG DOSE (2X325MG) PO PRN (14:29)
[2023-01-29] MEDS ORDERED: NS 1,000 ML IV SCH (14:40)
[2023-01-29] MEDS: ENOXAPARIN 40MG/0.4ML SYRINGE (J1650 PER 10MG) SC SCH (21:11)
[2023-01-29] MEDS: LEVEMIR (INSULIN DETEMIR) 1 UNITS/0.01ML SC SCH (21:12)
[2023-01-30 00:43] VITALS: BP 130/68
[2023-01-30] MEDS: ceFAZolin SOD 2 GM in IV 1 EA IV SCH ×3 (03:20→18:28)
[2023-01-30] MEDS: CALCIUM CARBONATE 500 MG CHEW U/D PO PRN ×2 (03:25→17:53)
[2023-01-30] MEDS: ONDANSETRON 4MG 2ML VIAL IV PRN ×2 (04:17→12:17)
[2023-01-30 06:07] LABS: BASO # 0.1 10^3/uL (0.0-0.2); BASO % 0.6 % (0.0-1.0); EOS # 0.3 10^3/uL (0.0-0.5); EOS % 2.1 % (0.0-3.0); HEMATOCRIT 28.3 % (42.0-52.0); HEMOGLOBIN 9.1 g/dl (13.5-17.5); LYMPH # 1.1 10^3/uL (1.5-5.0); LYMPH % 8.4 % (24.0-44.0); MEAN CORPUSCULAR HEMOGLOBIN 29.2 pg (27.0-33.0); MEAN CORPUSCULAR HGB CONC 32.2 g/dl (32.0-36.5); MEAN CORPUSCULAR VOLUME 90.7 fl (80.0-96.0); MONO # 1.1 10^3/uL (0.0-0.8); MONO % 8.9 % (2.0-8.0); PLATELET COUNT, AUTOMATED 340 10^3/uL (150-450); RED BLOOD COUNT 3.12 10^6/uL (4.30-6.10); WHITE BLOOD COUNT 12.6 10^3/uL (4.0-10.0)
[2023-01-30 06:26] LABS: BLOOD UREA NITROGEN 13 MG/DL (9-23); CALCIUM LEVEL 7.6 MG/DL (8.3-10.6); CARBON DIOXIDE LEVEL 29 MMOL/L (20-31); CHLORIDE LEVEL 105 MMOL/L (98-107); CREATININE FOR GFR 1.24 MG/DL (0.70-1.30); GLOMERULAR FILTRATION RATE > 60.0 (>49); GLUCOSE, FASTING 107 MG/DL (74-106); MAGNESIUM LEVEL 1.8 MG/DL (1.8-2.4); POTASSIUM SERUM 3.5 MMOL/L (3.5-5.1); SODIUM LEVEL 141 MMOL/L (136-145)
[2023-01-30 07:12] VITALS: BP 123/77
[2023-01-30] MEDS: INSULIN LISPRO (NovoLOG) PER UNIT SC SCH ×4 (07:30→21:00)
[2023-01-30] MEDS: TAMSULOSIN 0.4 MG CAP PO SCH (08:39)
[2023-01-30] MEDS: OMEPRAZOLE 20MG CAP PO SCH (08:39)
[2023-01-30] MEDS: LACTOBACILLUS ACIDOPHILUS CAP (BACID) PO SCH ×2 (08:39→17:48)
[2023-01-30] MEDS: metFORMIN (GLUCOPHAGE) 500MG TAB PO SCH (08:39)
[2023-01-30] MEDS: ATORVASTATIN 20 MG TAB PO SCH (08:39)
[2023-01-30 14:00] VITALS: BP 150/80
[2023-01-30] MEDS: NS 1,000 ML IV SCH (18:33)
[2023-01-30 21:00] VITALS: BP 132/75
[2023-01-30] MEDS: LEVEMIR (INSULIN DETEMIR) 1 UNITS/0.01ML SC SCH (21:06)
[2023-01-30] MEDS: ENOXAPARIN 40MG/0.4ML SYRINGE (J1650 PER 10MG) SC SCH (21:06)
[2023-01-31] MEDS: ceFAZolin SOD 2 GM in IV 1 EA IV SCH ×3 (02:26→18:42)
[2023-01-31 06:48] VITALS: BP 140/72
[2023-01-31] MEDS: ONDANSETRON 4MG 2ML VIAL IV PRN ×2 (06:55→13:08)
[2023-01-31 07:22] LABS: BASO # 0.1 10^3/uL (0.0-0.2); BASO % 0.6 % (0.0-1.0); EOS # 0.3 10^3/uL (0.0-0.5); EOS % 2.8 % (0.0-3.0); HEMATOCRIT 27.8 % (42.0-52.0); HEMOGLOBIN 8.8 g/dl (13.5-17.5); LYMPH # 1.2 10^3/uL (1.5-5.0); LYMPH % 9.5 % (24.0-44.0); MEAN CORPUSCULAR HEMOGLOBIN 28.9 pg (27.0-33.0); MEAN CORPUSCULAR HGB CONC 31.7 g/dl (32.0-36.5); MEAN CORPUSCULAR VOLUME 91.4 fl (80.0-96.0); MONO # 1.1 10^3/uL (0.0-0.8); MONO % 8.9 % (2.0-8.0); NEUTROPHILS # 9.5 10^3/uL (1.5-8.5); NEUTROPHILS % 77.6 % (36.0-66.0); PLATELET COUNT, AUTOMATED 321 10^3/uL (150-450); RED BLOOD COUNT 3.04 10^6/uL (4.30-6.10); WHITE BLOOD COUNT 12.3 10^3/uL (4.0-10.0)
[2023-01-31] MEDS: INSULIN LISPRO (NovoLOG) PER UNIT SC SCH ×4 (07:30→20:40)
[2023-01-31 07:43] LABS: BLOOD UREA NITROGEN 14 MG/DL (9-23); CALCIUM LEVEL 7.8 MG/DL (8.3-10.6); CARBON DIOXIDE LEVEL 27 MMOL/L (20-31); CHLORIDE LEVEL 105 MMOL/L (98-107); CREATININE FOR GFR 1.17 MG/DL (0.70-1.30); GLOMERULAR FILTRATION RATE > 60.0 (>49); GLUCOSE, FASTING 61 MG/DL (74-106); POTASSIUM SERUM 3.4 MMOL/L (3.5-5.1); SODIUM LEVEL 141 MMOL/L (136-145)
[2023-01-31] MEDS: DEXTROSE 50% 50ML SYRINGE IV PRN ×2 (07:47→07:50)
[2023-01-31] MEDS: TAMSULOSIN 0.4 MG CAP PO SCH (08:04)
[2023-01-31] MEDS: LACTOBACILLUS ACIDOPHILUS CAP (BACID) PO SCH ×2 (08:04→17:28)
[2023-01-31] MEDS: ATORVASTATIN 20 MG TAB PO SCH (08:04)
[2023-01-31] MEDS: ASPIRIN 81MG ENTERIC TABLET PO SCH (08:05)
[2023-01-31] MEDS: OMEPRAZOLE 20MG CAP PO SCH (08:05)
[2023-01-31] MEDS: SITagliptin 50 MG TAB (JANUVIA) PO SCH (10:21)
[2023-01-31] MEDS ORDERED: POTASSIUM CHLORIDE 10MEQ SR TABLET PO ONE (10:30)
[2023-01-31 11:08] LABS: TOTAL IRON BINDING CAPACITY 152 UG/DL (250-425)
[2023-01-31 11:11] LABS: FERRITIN 795.4 NG/ML (10.5-307.3); FOLATE 14.33 NG/ML (>5.4); IRON (FE) 11 UG/DL (65-175); PERCENT SATURATION 7.2 % (19.7-50.0)
[2023-01-31 13:22] VITALS: BP 122/80
[2023-01-31] MEDS: NS 1,000 ML IV SCH (16:18)
[2023-01-31 20:35] VITALS: BP 147/86
[2023-01-31] MEDS: ENOXAPARIN 40MG/0.4ML SYRINGE (J1650 PER 10MG) SC SCH (20:49)
[2023-01-31] MEDS ORDERED: LEVEMIR (INSULIN DETEMIR) 1 UNITS/0.01ML SC SCH (21:00)
[2023-01-31] MEDS: CALCIUM CARBONATE 500 MG CHEW U/D PO PRN (21:02)
[2023-02-01] MEDS: ceFAZolin SOD 2 GM in IV 1 EA IV SCH ×3 (02:15→18:08)
[2023-02-01 05:31] VITALS: BP 136/75
[2023-02-01 05:54] LABS: BASO # 0.1 10^3/uL (0.0-0.2); BASO % 0.7 % (0.0-1.0); EOS # 0.4 10^3/uL (0.0-0.5); EOS % 3.7 % (0.0-3.0); HEMATOCRIT 27.9 % (42.0-52.0); HEMOGLOBIN 8.9 g/dl (13.5-17.5); MEAN CORPUSCULAR HEMOGLOBIN 29.2 pg (27.0-33.0); MEAN CORPUSCULAR HGB CONC 31.9 g/dl (32.0-36.5); MEAN CORPUSCULAR VOLUME 91.5 fl (80.0-96.0); MONO % 9.3 % (2.0-8.0); NEUTROPHILS # 8.2 10^3/uL (1.5-8.5); NEUTROPHILS % 76.5 % (36.0-66.0); PLATELET COUNT, AUTOMATED 335 10^3/uL (150-450); RED BLOOD COUNT 3.05 10^6/uL (4.30-6.10); WHITE BLOOD COUNT 10.7 10^3/uL (4.0-10.0)
[2023-02-01 06:26] LABS: BLOOD UREA NITROGEN 14 MG/DL (9-23); CALCIUM LEVEL 7.8 MG/DL (8.3-10.6); CARBON DIOXIDE LEVEL 28 MMOL/L (20-31); CHLORIDE LEVEL 105 MMOL/L (98-107); CREATININE FOR GFR 1.21 MG/DL (0.70-1.30); GLOMERULAR FILTRATION RATE > 60.0 (>49); GLUCOSE, FASTING 205 MG/DL (74-106); POTASSIUM SERUM 3.9 MMOL/L (3.5-5.1); SODIUM LEVEL 140 MMOL/L (136-145)
[2023-02-01] MEDS: SITagliptin 50 MG TAB (JANUVIA) PO SCH (07:39)
[2023-02-01] MEDS: LACTOBACILLUS ACIDOPHILUS CAP (BACID) PO SCH ×2 (07:39→18:08)
[2023-02-01] MEDS: TAMSULOSIN 0.4 MG CAP PO SCH (07:39)
[2023-02-01] MEDS: ASPIRIN 81MG ENTERIC TABLET PO SCH (07:40)
[2023-02-01] MEDS: OMEPRAZOLE 20MG CAP PO SCH (07:40)
[2023-02-01] MEDS: ATORVASTATIN 20 MG TAB PO SCH (07:41)
[2023-02-01] MEDS: INSULIN LISPRO (NovoLOG) PER UNIT SC SCH ×5 (07:42→20:25)
[2023-02-01] MEDS: LEVEMIR (INSULIN DETEMIR) 1 UNITS/0.01ML SC SCH (09:40)
[2023-02-01] MEDS: FERROUS SULFATE 325MG TAB PO SCH (10:30)
[2023-02-01] MEDS: NS 1,000 ML IV SCH (10:30)
[2023-02-01] MEDS ORDERED: TRAD5TAB PO (12:07)
[2023-02-01] MEDS ORDERED: BASA100I SC (12:07)
[2023-02-01] MEDS ORDERED: SITA50TAB PO (12:07)
[2023-02-01] MEDS ORDERED: TRES1INJ2 SC (12:07)
[2023-02-01] MEDS ORDERED: TOUJ1.2I SC (12:07)
[2023-02-01] MEDS ORDERED: LANTINJ4 SC (12:07)
[2023-02-01] MEDS ORDERED: INSU100I6 SC (12:07)
[2023-02-01] MEDS ORDERED: ONGL1TAB9 PO (12:07)
[2023-02-01] MEDS ORDERED: INSU100I34 SQ (12:07)
[2023-02-01] MEDS: ACETAMINOPHEN TAB 650MG DOSE (2X325MG) PO PRN (13:53)
[2023-02-01] MEDS: CALCIUM CARBONATE 500 MG CHEW U/D PO PRN (13:54)
[2023-02-01 14:00] VITALS: BP 134/80
[2023-02-01] MEDS: ENOXAPARIN 40MG/0.4ML SYRINGE (J1650 PER 10MG) SC SCH (20:17)
[2023-02-01 20:26] VITALS: BP 138/82
[2023-02-02] VITALS (7 sets, daily range): BP systolic 132–190; BP diastolic 66–100
[2023-02-02] MEDS: ceFAZolin SOD 2 GM in IV 1 EA IV SCH ×3 (02:23→18:21)
[2023-02-02] MEDS: CALCIUM CARBONATE 500 MG CHEW U/D PO PRN ×2 (02:28→07:39)
[2023-02-02 06:59] LABS: BASO # 0.1 10^3/uL (0.0-0.2); BASO % 0.5 % (0.0-1.0); EOS # 0.4 10^3/uL (0.0-0.5); HEMATOCRIT 27.9 % (42.0-52.0); LYMPH # 0.8 10^3/uL (1.5-5.0); LYMPH % 8.1 % (24.0-44.0); MEAN CORPUSCULAR HEMOGLOBIN 29.7 pg (27.0-33.0); MEAN CORPUSCULAR HGB CONC 32.3 g/dl (32.0-36.5); MEAN CORPUSCULAR VOLUME 92.1 fl (80.0-96.0); MONO # 0.9 10^3/uL (0.0-0.8); MONO % 8.3 % (2.0-8.0); NEUTROPHILS # 8.1 10^3/uL (1.5-8.5); NEUTROPHILS % 78.3 % (36.0-66.0); PLATELET COUNT, AUTOMATED 353 10^3/uL (150-450); RED BLOOD COUNT 3.03 10^6/uL (4.30-6.10); WHITE BLOOD COUNT 10.3 10^3/uL (4.0-10.0)
[2023-02-02] MEDS: INSULIN LISPRO (NovoLOG) PER UNIT SC SCH ×4 (07:30→20:32)
[2023-02-02 07:33] LABS: BLOOD UREA NITROGEN 15 MG/DL (9-23); CALCIUM LEVEL 8.1 MG/DL (8.3-10.6); CARBON DIOXIDE LEVEL 27 MMOL/L (20-31); CHLORIDE LEVEL 106 MMOL/L (98-107); CREATININE FOR GFR 1.07 MG/DL (0.70-1.30); GLOMERULAR FILTRATION RATE > 60.0 (>49); GLUCOSE, FASTING 192 MG/DL (74-106); MAGNESIUM LEVEL 1.6 MG/DL (1.8-2.4); SODIUM LEVEL 141 MMOL/L (136-145)
[2023-02-02] MEDS: LACTOBACILLUS ACIDOPHILUS CAP (BACID) PO SCH ×2 (08:00→18:21)
[2023-02-02] MEDS: MAG SULF 1GM/100ML (MAG RUN) 1 GM in IV 1 EA IV SCH ×2 (08:04→15:41)
[2023-02-02] MEDS ORDERED: fentaNYL 100 MCG/2 ML INJECTION As Ordered ONE (08:24)
[2023-02-02] MEDS ORDERED: HEPARIN 1,000UNITS/ML 10ML VIAL (FOR RADIOLOGY & DIALYSIS ONLY) As Ordered ONE (08:25)
[2023-02-02] MEDS ORDERED: LIDOCAINE 1% MDV 20ML VIAL As Ordered ONE (08:25)
[2023-02-02] MEDS ORDERED: ISOVUE-300 61% 100ML VIAL As Ordered ONE (08:25)
[2023-02-02] MEDS ORDERED: MIDAZOLAM INJ 2MG/2ML VIAL As Ordered ONE (08:25)
[2023-02-02] MEDS: LEVEMIR (INSULIN DETEMIR) 1 UNITS/0.01ML SC SCH (09:00)
[2023-02-02] MEDS ORDERED: NITROGLYCERIN IN D5W 25MG/250ML (100MCG/ML) As Ordered ONE (11:03)
[2023-02-02] MEDS ORDERED: PAPAVERINE HCL 60MG 2ML VIAL (30MG/ML) INJ ONE (13:00)
[2023-02-02] MEDS: **hydrALAZINE HCL** 25 MG TAB PO SCH ×2 (15:04→22:00)
[2023-02-02] MEDS ORDERED: CLOPIDOGREL 300 MG TAB (PLAVIX) PO STA (15:26)
[2023-02-02] MEDS ORDERED: MAGNESIUM SULFATE 1GM/100ML D5W BAG (10MG/ML) As Ordered ONE (15:38)
[2023-02-02] MEDS: FERROUS SULFATE 325MG TAB PO SCH (17:14)
[2023-02-02] MEDS: ACETAMINOPHEN TAB 650MG DOSE (2X325MG) PO PRN ×2 (17:15→20:32)
[2023-02-02] MEDS: ASPIRIN 81MG ENTERIC TABLET PO SCH (17:15)
[2023-02-02] MEDS: ATORVASTATIN 20 MG TAB PO SCH (17:15)
[2023-02-02] MEDS: SITagliptin 50 MG TAB (JANUVIA) PO SCH (17:17)
[2023-02-02] MEDS: TAMSULOSIN 0.4 MG CAP PO SCH (17:17)
[2023-02-02] MEDS: ONDANSETRON 4MG 2ML VIAL IV PRN (18:27)
[2023-02-02] MEDS: ENOXAPARIN 40MG/0.4ML SYRINGE (J1650 PER 10MG) SC SCH (20:32)
[2023-02-03] MEDS: ceFAZolin SOD 2 GM in IV 1 EA IV SCH ×3 (03:21→18:23)
[2023-02-03] MEDS: **hydrALAZINE HCL** 25 MG TAB PO SCH ×3 (05:15→21:40)
[2023-02-03 06:00] VITALS: BP 140/76
[2023-02-03 06:40] LABS: BASO # 0.1 10^3/uL (0.0-0.2); BASO % 0.8 % (0.0-1.0); EOS # 0.5 10^3/uL (0.0-0.5); EOS % 4.4 % (0.0-3.0); HEMOGLOBIN 8.5 g/dl (13.5-17.5); LYMPH # 0.9 10^3/uL (1.5-5.0); LYMPH % 8.5 % (24.0-44.0); MEAN CORPUSCULAR HEMOGLOBIN 29.6 pg (27.0-33.0); MEAN CORPUSCULAR HGB CONC 32.7 g/dl (32.0-36.5); MEAN CORPUSCULAR VOLUME 90.6 fl (80.0-96.0); MONO # 0.8 10^3/uL (0.0-0.8); MONO % 7.8 % (2.0-8.0); NEUTROPHILS # 7.9 10^3/uL (1.5-8.5); NEUTROPHILS % 77.8 % (36.0-66.0); PLATELET COUNT, AUTOMATED 359 10^3/uL (150-450); RED BLOOD COUNT 2.87 10^6/uL (4.30-6.10); WHITE BLOOD COUNT 10.2 10^3/uL (4.0-10.0)
[2023-02-03 07:08] LABS: BLOOD UREA NITROGEN 12 MG/DL (9-23); CALCIUM LEVEL 7.8 MG/DL (8.3-10.6); CARBON DIOXIDE LEVEL 27 MMOL/L (20-31); CHLORIDE LEVEL 104 MMOL/L (98-107); GLOMERULAR FILTRATION RATE > 60.0 (>49); GLUCOSE, FASTING 140 MG/DL (74-106); POTASSIUM SERUM 3.8 MMOL/L (3.5-5.1); SODIUM LEVEL 138 MMOL/L (136-145)
[2023-02-03] MEDS: INSULIN LISPRO (NovoLOG) PER UNIT SC SCH ×4 (07:30→20:33)
[2023-02-03] MEDS: LACTOBACILLUS ACIDOPHILUS CAP (BACID) PO SCH ×2 (08:28→18:23)
[2023-02-03] MEDS: CLOPIDOGREL 75 MG TAB PO SCH (08:28)
[2023-02-03] MEDS: TAMSULOSIN 0.4 MG CAP PO SCH (08:28)
[2023-02-03] MEDS: ATORVASTATIN 20 MG TAB PO SCH (08:28)
[2023-02-03] MEDS: FERROUS SULFATE 325MG TAB PO SCH (08:28)
[2023-02-03] MEDS: PANTOPRAZOLE 20 MG TAB PO SCH (08:28)
[2023-02-03] MEDS: ASPIRIN 81MG ENTERIC TABLET PO SCH (08:28)
[2023-02-03] MEDS: SITagliptin 50 MG TAB (JANUVIA) PO SCH (08:28)
[2023-02-03] MEDS: LEVEMIR (INSULIN DETEMIR) 1 UNITS/0.01ML SC SCH (08:29)
[2023-02-03] MEDS: CALCIUM CARBONATE 500 MG CHEW U/D PO PRN ×2 (11:35→20:31)
[2023-02-03] MEDS: ONDANSETRON 4MG 2ML VIAL IV PRN (13:40)
[2023-02-03 14:00] VITALS: BP 138/72
[2023-02-03 21:13] VITALS: BP 112/60
[2023-02-04] VITALS (8 sets, daily range): BP systolic 124–189; BP diastolic 68–92
[2023-02-04] MEDS ORDERED: NS 1,000 ML IV ONE
[2023-02-04] MEDS: ceFAZolin SOD 2 GM in IV 1 EA IV SCH ×3 (02:09→18:09)
[2023-02-04] MEDS: **hydrALAZINE HCL** 25 MG TAB PO SCH ×3 (05:38→21:58)
[2023-02-04 06:48] LABS: BASO # 0.1 10^3/uL (0.0-0.2); BASO % 1.1 % (0.0-1.0); EOS # 0.3 10^3/uL (0.0-0.5); EOS % 3.2 % (0.0-3.0); HEMATOCRIT 25.4 % (42.0-52.0); HEMOGLOBIN 8.1 g/dl (13.5-17.5); LYMPH # 1.1 10^3/uL (1.5-5.0); LYMPH % 11.7 % (24.0-44.0); MEAN CORPUSCULAR HEMOGLOBIN 28.9 pg (27.0-33.0); MEAN CORPUSCULAR HGB CONC 31.9 g/dl (32.0-36.5); MEAN CORPUSCULAR VOLUME 90.7 fl (80.0-96.0); MONO # 0.8 10^3/uL (0.0-0.8); MONO % 8.9 % (2.0-8.0); NEUTROPHILS # 6.8 10^3/uL (1.5-8.5); NEUTROPHILS % 74.3 % (36.0-66.0); PLATELET COUNT, AUTOMATED 375 10^3/uL (150-450); WHITE BLOOD COUNT 9.1 10^3/uL (4.0-10.0)
[2023-02-04 07:09] LABS: BLOOD UREA NITROGEN 14 MG/DL (9-23); CALCIUM LEVEL 8.1 MG/DL (8.3-10.6); CARBON DIOXIDE LEVEL 28 MMOL/L (20-31); CHLORIDE LEVEL 105 MMOL/L (98-107); CREATININE FOR GFR 1.07 MG/DL (0.70-1.30); GLOMERULAR FILTRATION RATE > 60.0 (>49); GLUCOSE, FASTING 185 MG/DL (74-106); POTASSIUM SERUM 3.7 MMOL/L (3.5-5.1); SODIUM LEVEL 137 MMOL/L (136-145)
[2023-02-04] MEDS: INSULIN LISPRO (NovoLOG) PER UNIT SC SCH ×4 (07:30→21:00)
[2023-02-04 07:34] LABS: MAGNESIUM LEVEL 1.7 MG/DL (1.8-2.4)
[2023-02-04] MEDS ORDERED: LIDOCAINE 1% SDV 30ML VIAL As Ordered ONE (07:47)
[2023-02-04] MEDS ORDERED: BUPIVACAINE HCL 0.5% 30ML VIAL As Ordered ONE (07:47)
[2023-02-04] MEDS ORDERED: LIDOCAINE 2% 100MG/5ML SDV (FOR ANES.) As Ordered ONE (07:47)
[2023-02-04] MEDS ORDERED: propofoL 500 MG/50 ML VIAL As Ordered ONE (07:48)
[2023-02-04] MEDS ORDERED: MIDAZOLAM INJ 2MG/2ML VIAL As Ordered ONE (07:48)
[2023-02-04] MEDS ORDERED: fentaNYL 100 MCG/2 ML INJECTION As Ordered ONE (07:48)
[2023-02-04] MEDS ORDERED: HYDROMORPHONE HCL 0.5 MG/ 0.5 ML SYRINGE IV PRN (09:05)
[2023-02-04] MEDS ORDERED: fentaNYL 100 MCG/2 ML INJECTION IV PRN (09:05)
[2023-02-04] MEDS ORDERED: ONDANSETRON 4MG 2ML VIAL IV PRN (09:05)
[2023-02-04] MEDS ORDERED: oxyCODONE 5MG TAB PO PRN (09:05)
[2023-02-04] MEDS: TAMSULOSIN 0.4 MG CAP PO SCH (10:35)
[2023-02-04] MEDS: FERROUS SULFATE 325MG TAB PO SCH (10:35)
[2023-02-04] MEDS: SITagliptin 50 MG TAB (JANUVIA) PO SCH (10:35)
[2023-02-04] MEDS: CLOPIDOGREL 75 MG TAB PO SCH (10:35)
[2023-02-04] MEDS: LEVEMIR (INSULIN DETEMIR) 1 UNITS/0.01ML SC SCH (10:36)
[2023-02-04] MEDS: ASPIRIN 81MG ENTERIC TABLET PO SCH (10:36)
[2023-02-04] MEDS: ATORVASTATIN 20 MG TAB PO SCH (10:36)
[2023-02-04] MEDS: PANTOPRAZOLE 20 MG TAB PO SCH (10:36)
[2023-02-04] MEDS: LACTOBACILLUS ACIDOPHILUS CAP (BACID) PO SCH ×2 (10:38→18:08)
[2023-02-04] MEDS: MAG SULF 1GM/100ML (MAG RUN) 1 GM in IV 1 EA IV SCH ×2 (12:21→13:52)
[2023-02-04] MEDS: LOSARTAN 25 MG TAB PO SCH (13:51)
[2023-02-04] MEDS: ENOXAPARIN 40MG/0.4ML SYRINGE (J1650 PER 10MG) SC SCH (21:57)
[2023-02-05] VITALS (10 sets, daily range): BP systolic 129–164; BP diastolic 70–86
[2023-02-05] MEDS: ceFAZolin SOD 2 GM in IV 1 EA IV SCH ×3 (03:17→20:26)
[2023-02-05] MEDS: **hydrALAZINE HCL** 25 MG TAB PO SCH (05:08)
[2023-02-05 06:12] LABS: BASO # 0.1 10^3/uL (0.0-0.2); BASO % 1.3 % (0.0-1.0); EOS # 0.4 10^3/uL (0.0-0.5); EOS % 5.4 % (0.0-3.0); HEMATOCRIT 24.6 % (42.0-52.0); LYMPH # 1.1 10^3/uL (1.5-5.0); LYMPH % 14.3 % (24.0-44.0); MEAN CORPUSCULAR HEMOGLOBIN 29.5 pg (27.0-33.0); MEAN CORPUSCULAR HGB CONC 32.5 g/dl (32.0-36.5); MEAN CORPUSCULAR VOLUME 90.8 fl (80.0-96.0); MONO # 0.8 10^3/uL (0.0-0.8); MONO % 9.8 % (2.0-8.0); NEUTROPHILS # 5.4 10^3/uL (1.5-8.5); NEUTROPHILS % 68.3 % (36.0-66.0); PLATELET COUNT, AUTOMATED 385 10^3/uL (150-450); RED BLOOD COUNT 2.71 10^6/uL (4.30-6.10); WHITE BLOOD COUNT 7.9 10^3/uL (4.0-10.0)
[2023-02-05 06:42] LABS: BLOOD UREA NITROGEN 13 MG/DL (9-23); CALCIUM LEVEL 7.8 MG/DL (8.3-10.6); CARBON DIOXIDE LEVEL 29 MMOL/L (20-31); CHLORIDE LEVEL 105 MMOL/L (98-107); CREATININE FOR GFR 1.03 MG/DL (0.70-1.30); GLOMERULAR FILTRATION RATE > 60.0 (>49); GLUCOSE, FASTING 139 MG/DL (74-106); POTASSIUM SERUM 3.6 MMOL/L (3.5-5.1); SODIUM LEVEL 136 MMOL/L (136-145)
[2023-02-05] MEDS: INSULIN LISPRO (NovoLOG) PER UNIT SC SCH ×4 (07:27→21:00)
[2023-02-05] MEDS ORDERED: POTASSIUM CHLORIDE 10MEQ SR TABLET PO ONE (07:40)
[2023-02-05 08:06] LABS: MAGNESIUM LEVEL 1.8 MG/DL (1.8-2.4)
[2023-02-05] MEDS: CLOPIDOGREL 75 MG TAB PO SCH (08:30)
[2023-02-05] MEDS: LEVEMIR (INSULIN DETEMIR) 1 UNITS/0.01ML SC SCH (08:30)
[2023-02-05] MEDS: SITagliptin 50 MG TAB (JANUVIA) PO SCH (08:31)
[2023-02-05] MEDS: ASPIRIN 81MG ENTERIC TABLET PO SCH (08:31)
[2023-02-05] MEDS: LACTOBACILLUS ACIDOPHILUS CAP (BACID) PO SCH ×2 (08:31→19:07)
[2023-02-05] MEDS: TAMSULOSIN 0.4 MG CAP PO SCH (08:31)
[2023-02-05] MEDS: ATORVASTATIN 20 MG TAB PO SCH (08:31)
[2023-02-05] MEDS: PANTOPRAZOLE 20 MG TAB PO SCH (08:31)
[2023-02-05] MEDS: FERROUS SULFATE 325MG TAB PO SCH (08:31)
[2023-02-05] MEDS: LOSARTAN 25 MG TAB PO SCH (08:32)
[2023-02-05] MEDS: ONDANSETRON 4MG 2ML VIAL IV PRN (10:42)
[2023-02-05] MEDS ORDERED: **hydrALAZINE HCL** 25 MG TAB PO PRN (11:25)
[2023-02-05] MEDS ORDERED: MAGNESIUM OXIDE 400MG TAB (MAG-OX) PO ONE (15:00)
[2023-02-05] MEDS ORDERED: ATOR1TAB21 PO (15:24)
[2023-02-05] MEDS ORDERED: ASPI81TAEC PO (15:24)
[2023-02-05] MEDS ORDERED: CLOP75TA2 PO (15:24)
[2023-02-05] MEDS ORDERED: FLOM0.4C39 PO (15:25)
[2023-02-05] MEDS ORDERED: COZA50TA PO (15:25)
[2023-02-05] MEDS ORDERED: PERCOCET PO (15:25)
[2023-02-05] MEDS ORDERED: FERR1TAB8 PO (15:25)
[2023-02-05] MEDS: ENOXAPARIN 40MG/0.4ML SYRINGE (J1650 PER 10MG) SC SCH (21:41)
[2023-02-06 05:41] LABS: BASO # 0.1 10^3/uL (0.0-0.2); BASO % 1.7 % (0.0-1.0); EOS # 0.5 10^3/uL (0.0-0.5); EOS % 6.8 % (0.0-3.0); HEMATOCRIT 27.1 % (42.0-52.0); HEMOGLOBIN 8.8 g/dl (13.5-17.5); LYMPH # 1.1 10^3/uL (1.5-5.0); MEAN CORPUSCULAR HEMOGLOBIN 29.2 pg (27.0-33.0); MEAN CORPUSCULAR HGB CONC 32.5 g/dl (32.0-36.5); MONO # 0.8 10^3/uL (0.0-0.8); MONO % 10.9 % (2.0-8.0); NEUTROPHILS % 65.6 % (36.0-66.0); PLATELET COUNT, AUTOMATED 366 10^3/uL (150-450); RED BLOOD COUNT 3.01 10^6/uL (4.30-6.10); WHITE BLOOD COUNT 7.6 10^3/uL (4.0-10.0)
[2023-02-06 06:00] VITALS: BP 128/78
[2023-02-06 06:00] LABS: BLOOD UREA NITROGEN 13 MG/DL (9-23); CARBON DIOXIDE LEVEL 29 MMOL/L (20-31); CHLORIDE LEVEL 105 MMOL/L (98-107); CREATININE FOR GFR 0.96 MG/DL (0.70-1.30); GLOMERULAR FILTRATION RATE > 60.0 (>49); GLUCOSE, FASTING 159 MG/DL (74-106); POTASSIUM SERUM 3.9 MMOL/L (3.5-5.1); SODIUM LEVEL 140 MMOL/L (136-145)
[2023-02-06] MEDS ORDERED: glipiZIDE (GLUCOTROL) 5 MG TAB PO SCH (07:30)
[2023-02-06 08:22] VITALS: BP 152/78
[2023-02-06] MEDS ORDERED: LOSARTAN 50MG TABLET PO SCH (09:00)
[2023-02-06] MEDS: ASPIRIN 81MG ENTERIC TABLET PO SCH (09:22)
[2023-02-06] MEDS: TAMSULOSIN 0.4 MG CAP PO SCH (09:23)
[2023-02-06] MEDS: PANTOPRAZOLE 20 MG TAB PO SCH (09:23)
[2023-02-06] MEDS: LACTOBACILLUS ACIDOPHILUS CAP (BACID) PO SCH (09:24)
[2023-02-06] MEDS: ATORVASTATIN 20 MG TAB PO SCH (09:25)
[2023-02-06 09:28] VITALS: BP 152/78
[2023-02-06] MEDS: FERROUS SULFATE 325MG TAB PO SCH (09:28)
[2023-02-06] MEDS: CLOPIDOGREL 75 MG TAB PO SCH (09:28)
[2023-02-06] MEDS: INSULIN LISPRO (NovoLOG) PER UNIT SC SCH ×2 (09:33→13:32)
[2023-02-06] MEDS: LEVEMIR (INSULIN DETEMIR) 1 UNITS/0.01ML SC SCH (09:34)
[2023-02-06] MEDS: CALCIUM CARBONATE 500 MG CHEW U/D PO PRN (11:25)
[2023-02-06] MEDS ORDERED: ATOR40TA75 PO (12:08)
[2023-02-06] MEDS ORDERED: GLIP5TAB8 PO (12:21)
[2023-02-06] MEDS ORDERED: LANTINJ4 SC (12:25)
[2023-02-06] MEDS ORDERED: LANC30MI XX (12:25)
[2023-02-06] MEDS ORDERED: PEN1MIS21 SC (12:25)
[2023-02-06] MEDS ORDERED: ALCOPAD25 TOP (12:25)
[2023-02-06] MEDS ORDERED: BLOOKIT21 XX (12:25)
[2023-02-06] MEDS ORDERED: GLUC1TES2 XX (12:25)
[2023-02-06] MEDS ORDERED: FREE1MIS32 XX (14:08)
[2023-02-06] MEDS ORDERED: FLAS1EAC MC (14:10)
[2023-02-06] MEDS ORDERED: MAGN400T2 PO (14:24)
[2023-02-06] MEDS ORDERED: MAGNESIUM OXIDE 400MG TAB (MAG-OX) PO SCH (14:25)
[2023-02-07] MEDS ORDERED: LEVEMIR (INSULIN DETEMIR) 1 UNITS/0.01ML SC SCH (09:00)
== END 2023-02-06 15:35 | disposition home health service (06) | DRG 314 ==
LOC: M ED 08:38 → M ED INP 15:43 → ENRESERV 17:06 → M MS5PR 18:10 → OBSVTOIN 01-23 11:09
PROVIDERS: ADMIT Internal Medicine; ATTEND Internal Medicine
PROC: 0HTRXZZ Resection of Toe Nail, External Approach (ICD-10-PCS; 2023-01-22)
PROC: 0Y6Q0Z0 Detachment at Left 1st Toe, Complete, Open Approach (ICD-10-PCS; 2023-01-25)
PROC: 0JBR0ZZ Excision of Left Foot Subcutaneous Tissue and Fascia, Open Approach (ICD-10-PCS; 2023-01-25)
PROC: 0LBV0ZZ Excision of Right Foot Tendon, Open Approach (ICD-10-PCS; 2023-01-28)
PROC: 0QBP0ZZ Excision of Left Metatarsal, Open Approach (ICD-10-PCS; principal; 2023-01-28 17:00)
PROC: 047Q3DZ Dilation of Left Anterior Tibial Artery with Intraluminal Device, Percutaneous Approach (ICD-10-PCS; 2023-02-02)
PROC: 047R3DZ Dilation of Right Posterior Tibial Artery with Intraluminal Device, Percutaneous Approach (ICD-10-PCS; 2023-02-02)
PROC: 047 Lower Arteries, Dilation (ICD-10-PCS; 2023-02-02)
PROC: 04FQ3ZZ Fragmentation of Left Anterior Tibial Artery, Percutaneous Approach (ICD-10-PCS; 2023-02-02)
PROC: 04FS3ZZ Fragmentation of Left Posterior Tibial Artery, Percutaneous Approach (ICD-10-PCS; 2023-02-02)
PROC: 04FY3ZZ Fragmentation of Lower Artery, Percutaneous Approach (ICD-10-PCS; 2023-02-02)
PROC: 0QBP0ZZ Excision of Left Metatarsal, Open Approach (ICD-10-PCS; 2023-02-04)
PROC: 30233N1 Transfusion of Nonautologous Red Blood Cells into Peripheral Vein, Percutaneous Approach (ICD-10-PCS; 2023-02-05)
DX: E11.628 Type 2 diabetes mellitus with other skin complications (principal); N17.9 Acute kidney failure, unspecified; K52.1 Toxic gastroenteritis and colitis; E11.52 Type 2 diabetes mellitus with diabetic peripheral angiopathy with gangrene; E11.65 Type 2 diabetes mellitus with hyperglycemia; M86.8X7 Other osteomyelitis, ankle and foot; E83.42 Hypomagnesemia; L97.529 Non-pressure chronic ulcer of other part of left foot with unspecified severity; E78.5 Hyperlipidemia, unspecified; N40.0 Benign prostatic hyperplasia without lower urinary tract symptoms; D50.9 Iron deficiency anemia, unspecified; T36.95XA Adverse effect of unspecified systemic antibiotic, initial encounter; I10 Essential (primary) hypertension; B95.61 Methicillin susceptible Staphylococcus aureus infection as the cause of diseases classified elsewhere; D63.8 Anemia in other chronic diseases classified elsewhere; K21.9 Gastro-esophageal reflux disease without esophagitis; L08.9 Local infection of the skin and subcutaneous tissue, unspecified; E11.42 Type 2 diabetes mellitus with diabetic polyneuropathy; E11.69 Type 2 diabetes mellitus with other specified complication; E11.621 Type 2 diabetes mellitus with foot ulcer; E11.649 Type 2 diabetes mellitus with hypoglycemia without coma; Z79.899 Other long term (current) drug therapy; Z89.222 Acquired absence of left upper limb above elbow; Z90.49 Acquired absence of other specified parts of digestive tract; Z79.84 Long term (current) use of oral hypoglycemic drugs; Z96.653 Presence of artificial knee joint, bilateral; Z87.81 Personal history of (healed) traumatic fracture

== ENCOUNTER → 2023-03-09 | Outpatient (REF) | payer SELFPAY ==
[~2023-03-09] MED LIST changes: +ALCOPAD25 TOP; +ASPI81TAEC PO; +ATOR1TAB21 PO; +ATOR40TA75 PO; +BASA100I SC; +BLOOKIT21 XX; +CLOP75TA2 PO; +EQL50TAB2 PO; +FERR1TAB8 PO; +FLAS1EAC MC; +FLOM0.4C39 PO; +FLUT50SP17 NARES; +FREE1MIS32 XX; +GLIP5TAB8 PO; +GLUC1TES2 XX; +INSU100I34 SQ; +INSU100I6 SC; +LANC30MI XX; +LANTINJ4 SC; +LOSA-528 PO; +MAGN400T2 PO; +ONGL1TAB9 PO; +PEN1MIS21 SC; +PERCOCET PO; +SITA50TAB PO; +TAMS1CAP17 PO; +TOUJ1.2I SC; +TRAD5TAB PO; +TRES1INJ2 SC
== END ==
LOC: M LAB REF 13:25
PROVIDERS: ATTEND Podiatrist Foot & Ankle Surgery
DX: M86.172 Other acute osteomyelitis, left ankle and foot (principal); L98.9 Disorder of the skin and subcutaneous tissue, unspecified

== ENCOUNTER 2023-03-18 12:47 | Inpatient (IN) | payer SELFPAY ==
[~2023-03-18] VITALS: Ht 180.3 cm; Wt 68.9 kg
[2023-03-18 14:23] LABS: BASO # 0.1 10^3/uL (0.0-0.2); BASO % 0.6 % (0.0-1.0); EOS # 0.2 10^3/uL (0.0-0.5); EOS % 1.5 % (0.0-3.0); HEMATOCRIT 26.4 % (42.0-52.0); HEMOGLOBIN 8.3 g/dl (13.5-17.5); LYMPH # 1.5 10^3/uL (1.5-5.0); LYMPH % 12.2 % (24.0-44.0); MEAN CORPUSCULAR HEMOGLOBIN 27.1 pg (27.0-33.0); MEAN CORPUSCULAR HGB CONC 31.4 g/dl (32.0-36.5); MEAN CORPUSCULAR VOLUME 86.3 fl (80.0-96.0); MONO % 8.2 % (2.0-8.0); NEUTROPHILS # 9.5 10^3/uL (1.5-8.5); NEUTROPHILS % 76.9 % (36.0-66.0); PLATELET COUNT, AUTOMATED 413 10^3/uL (150-450); RED BLOOD COUNT 3.06 10^6/uL (4.30-6.10); WHITE BLOOD COUNT 12.4 10^3/uL (4.0-10.0)
[2023-03-18 14:58] LABS: ERYTHROCYTE SEDIMENTATION RATE 84 mm/hr (0-20)
[2023-03-18 15:33] LABS: BLOOD UREA NITROGEN 24 MG/DL (9-23); CALCIUM LEVEL 8.9 MG/DL (8.3-10.6); CARBON DIOXIDE LEVEL 32 MMOL/L (20-31); CHLORIDE LEVEL 98 MMOL/L (98-107); CREATININE FOR GFR 1.12 MG/DL (0.70-1.30); GLOMERULAR FILTRATION RATE > 60.0 (>49); GLUCOSE, FASTING 117 MG/DL (74-106); POTASSIUM SERUM 4.5 MMOL/L (3.5-5.1); SODIUM LEVEL 134 MMOL/L (136-145)
[2023-03-18] MEDS ORDERED: VANCOMYCIN HCL 1,000 MG, VIAL MATE ADAPTER 1 EACH in D5W 250 ML IV ONE (16:10)
[2023-03-18] MEDS ORDERED: PIPERACILLIN/TAZOBACTAM SOD 4.5 GM in D5W MINI-BAG PLUS 50 ML IV ONE (16:10)
[2023-03-18] MEDS ORDERED: MOM 30ML SUSPENSION UDC PO PRN (16:35)
[2023-03-18] MEDS ORDERED: DEXTROSE 50% 50ML SYRINGE IV PRN (16:35)
[2023-03-18] MEDS ORDERED: GLUCOSE 4GM CHEW TABLET PO PRN (16:35)
[2023-03-18] MEDS ORDERED: GLUCAGON INJ 1MG VIAL SC PRN (16:35)
[2023-03-18] MEDS ORDERED: MORPHINE 2 MG/ML 1ML VIAL IV PRN (17:00)
[2023-03-18 17:08] LABS: RSV AMPLIFICATION NEGATIVE (NEGATIVE)
[2023-03-18] MEDS ORDERED: ACET650T61 PO (17:11)
[2023-03-18] MEDS ORDERED: SF 51.1C MT (17:11)
[2023-03-18] MEDS ORDERED: TAMS1CAP17 PO (17:11)
[2023-03-18] MEDS ORDERED: ATOR80TA59 PO (17:11)
[2023-03-18] MEDS ORDERED: ASPI-226 PO (17:11)
[2023-03-18] MEDS ORDERED: FERR325T19 PO (17:11)
[2023-03-18] MEDS ORDERED: LANTINJ4 SC (17:11)
[2023-03-18] MEDS ORDERED: CLOP75TA2 PO (17:11)
[2023-03-18] MEDS ORDERED: LOSA25TA13 PO (17:11)
[2023-03-18] MEDS ORDERED: MAGN400T35 PO (17:11)
[2023-03-18] MEDS ORDERED: GLIP5TAB8 PO (17:11)
[2023-03-18] MEDS ORDERED: HOME MED LIST COMPLETE! XX SCH (17:15)
[2023-03-18] MEDS ORDERED: PROHANCE 279.3MG/ML 15ML VIAL As Ordered ONE (18:33)
[2023-03-18] MEDS: INSULIN LISPRO (NovoLOG) PER UNIT SC SCH ×2 (20:40→21:00)
[2023-03-18] MEDS: DOCUSATE SODIUM 100MG CAPSULE PO SCH (21:00)
[2023-03-18] MEDS: VANCOMYCIN HCL 1,000 MG, VIAL MATE ADAPTER 1 EACH in D5W 250 ML IV SCH (22:29)
[2023-03-19] MEDS: PIPERACILLIN/TAZOBACTAM SOD 3.375 GM in D5W MINI-BAG PLUS 50 ML IV SCH ×4 (01:55→17:33)
[2023-03-19] MEDS ORDERED: VANCOMYCIN HCL 1,050 MG in IV FLUID PLACE HOLDER 1 EA IV SCH (06:00)
[2023-03-19 06:06] LABS: BLOOD UREA NITROGEN 21 MG/DL (9-23); CALCIUM LEVEL 8.7 MG/DL (8.3-10.6); CARBON DIOXIDE LEVEL 30 MMOL/L (20-31); CHLORIDE LEVEL 98 MMOL/L (98-107); CREATININE FOR GFR 0.92 MG/DL (0.70-1.30); GLOMERULAR FILTRATION RATE > 60.0 (>49); GLUCOSE, FASTING 190 MG/DL (74-106); POTASSIUM SERUM 4.1 MMOL/L (3.5-5.1); SODIUM LEVEL 134 MMOL/L (136-145)
[2023-03-19] MEDS: LEVEMIR (INSULIN DETEMIR) 1 UNITS/0.01ML SC SCH (08:41)
[2023-03-19] MEDS: VANCOMYCIN HCL 1,000 MG, VIAL MATE ADAPTER 1 EACH in D5W 250 ML IV SCH ×2 (08:41→20:34)
[2023-03-19] MEDS: INSULIN LISPRO (NovoLOG) PER UNIT SC SCH ×4 (08:42→21:00)
[2023-03-19] MEDS: DOCUSATE SODIUM 100MG CAPSULE PO SCH ×2 (08:42→20:34)
[2023-03-19] MEDS ORDERED: ENOXAPARIN 40MG/0.4ML SYRINGE (J1650 PER 10MG) SC SCH (09:00)
[2023-03-19 10:30] LABS: BASO # 0.1 10^3/uL (0.0-0.2); BASO % 0.6 % (0.0-1.0); EOS # 0.2 10^3/uL (0.0-0.5); EOS % 1.7 % (0.0-3.0); HEMATOCRIT 24.6 % (42.0-52.0); HEMOGLOBIN 7.8 g/dl (13.5-17.5); LYMPH # 1.3 10^3/uL (1.5-5.0); LYMPH % 11.4 % (24.0-44.0); MEAN CORPUSCULAR HEMOGLOBIN 27.5 pg (27.0-33.0); MEAN CORPUSCULAR HGB CONC 31.7 g/dl (32.0-36.5); MEAN CORPUSCULAR VOLUME 86.6 fl (80.0-96.0); MONO # 1.1 10^3/uL (0.0-0.8); MONO % 9.2 % (2.0-8.0); NEUTROPHILS # 8.9 10^3/uL (1.5-8.5); NEUTROPHILS % 76.4 % (36.0-66.0); PLATELET COUNT, AUTOMATED 390 10^3/uL (150-450); RED BLOOD COUNT 2.84 10^6/uL (4.30-6.10); WHITE BLOOD COUNT 11.7 10^3/uL (4.0-10.0)
[2023-03-19 12:30] VITALS: BP 132/75; TEMP 97.9; O2SAT 98
[2023-03-19] MEDS: CLOPIDOGREL 75 MG TAB PO SCH (14:46)
[2023-03-19] MEDS: ATORVASTATIN 20 MG TAB PO SCH (14:46)
[2023-03-19] MEDS: ASPIRIN 81MG ENTERIC TABLET PO SCH (14:46)
[2023-03-19] MEDS: ACETAMINOPHEN TAB 650MG DOSE (2X325MG) PO PRN (17:33)
[2023-03-19 22:04] VITALS: BP 111/65; TEMP 98.6; O2SAT 96
[2023-03-20] MEDS: PIPERACILLIN/TAZOBACTAM SOD 3.375 GM in D5W MINI-BAG PLUS 50 ML IV SCH ×4 (00:03→18:03)
[2023-03-20 05:52] VITALS: BP 114/65; TEMP 98.8; O2SAT 97
[2023-03-20 06:00] VITALS: BP 120/64; TEMP 97.9; O2SAT 97
[2023-03-20 06:36] LABS: BASO # 0.1 10^3/uL (0.0-0.2); EOS # 0.2 10^3/uL (0.0-0.5); EOS % 1.7 % (0.0-3.0); HEMATOCRIT 23.9 % (42.0-52.0); HEMOGLOBIN 7.5 g/dl (13.5-17.5); LYMPH # 1.1 10^3/uL (1.5-5.0); LYMPH % 10.1 % (24.0-44.0); MEAN CORPUSCULAR HEMOGLOBIN 27.2 pg (27.0-33.0); MEAN CORPUSCULAR HGB CONC 31.4 g/dl (32.0-36.5); MEAN CORPUSCULAR VOLUME 86.6 fl (80.0-96.0); MONO # 0.9 10^3/uL (0.0-0.8); MONO % 8.7 % (2.0-8.0); NEUTROPHILS # 8.2 10^3/uL (1.5-8.5); PLATELET COUNT, AUTOMATED 374 10^3/uL (150-450); RED BLOOD COUNT 2.76 10^6/uL (4.30-6.10); WHITE BLOOD COUNT 10.5 10^3/uL (4.0-10.0)
[2023-03-20 07:02] LABS: BLOOD UREA NITROGEN 17 MG/DL (9-23); CALCIUM LEVEL 8.3 MG/DL (8.3-10.6); CARBON DIOXIDE LEVEL 27 MMOL/L (20-31); CHLORIDE LEVEL 101 MMOL/L (98-107); CREATININE FOR GFR 0.79 MG/DL (0.70-1.30); GLOMERULAR FILTRATION RATE > 60.0 (>49); GLUCOSE, FASTING 268 MG/DL (74-106); MAGNESIUM LEVEL 1.6 MG/DL (1.8-2.4); PHOSPHORUS LEVEL 3.7 MG/DL (2.4-5.1); POTASSIUM SERUM 3.9 MMOL/L (3.5-5.1); SODIUM LEVEL 137 MMOL/L (136-145)
[2023-03-20] MEDS: MAG SULF 1GM/100ML (MAG RUN) 1 GM in IV 1 EA IV SCH ×2 (08:22→09:00)
[2023-03-20] MEDS: ATORVASTATIN 20 MG TAB PO SCH (08:42)
[2023-03-20] MEDS: CLOPIDOGREL 75 MG TAB PO SCH (08:42)
[2023-03-20] MEDS: ASPIRIN 81MG ENTERIC TABLET PO SCH (08:43)
[2023-03-20] MEDS: DOCUSATE SODIUM 100MG CAPSULE PO SCH ×2 (08:43→21:59)
[2023-03-20] MEDS: LEVEMIR (INSULIN DETEMIR) 1 UNITS/0.01ML SC SCH (08:44)
[2023-03-20] MEDS: INSULIN LISPRO (NovoLOG) PER UNIT SC SCH ×4 (08:45→21:00)
[2023-03-20] MEDS ORDERED: MIDAZOLAM INJ 2MG/2ML VIAL As Ordered ONE (10:08)
[2023-03-20] MEDS ORDERED: fentaNYL 100 MCG/2 ML INJECTION As Ordered ONE (10:09)
[2023-03-20] MEDS ORDERED: ACETAMINOPHEN 1000MG 100ML IV BAG As Ordered ONE (10:10)
[2023-03-20] MEDS ORDERED: LIDOCAINE 2% 100MG/5ML SDV (FOR ANES.) As Ordered ONE (10:10)
[2023-03-20] MEDS ORDERED: ONDANSETRON 4MG 2ML VIAL As Ordered ONE (10:10)
[2023-03-20] MEDS ORDERED: propofoL 200 MG/20 ML VIAL As Ordered ONE (10:10)
[2023-03-20] MEDS: VANCOMYCIN HCL 1,000 MG, VIAL MATE ADAPTER 1 EACH in D5W 250 ML IV SCH ×2 (10:15→21:59)
[2023-03-20 10:51] LABS: IRON (FE) 16 UG/DL (65-175); PERCENT SATURATION 8.2 % (19.7-50.0); TOTAL IRON BINDING CAPACITY 195 UG/DL (250-425)
[2023-03-20 10:53] LABS: FERRITIN 663.8 NG/ML (10.5-307.3)
[2023-03-20 10:54] LABS: VITAMIN B12 LEVEL 286 PG/ML (211-911)
[2023-03-20] MEDS ORDERED: LIDOCAINE 1% MDV 20ML VIAL As Ordered ONE (11:04)
[2023-03-20] MEDS ORDERED: fentaNYL 100 MCG/2 ML INJECTION IV PRN (12:20)
[2023-03-20] MEDS ORDERED: ONDANSETRON 4MG 2ML VIAL IV PRN (12:20)
[2023-03-20] MEDS ORDERED: oxyCODONE 5MG TAB PO PRN (12:20)
[2023-03-20] MEDS ORDERED: LR 1,000 ML IV SCH (12:20)
[2023-03-20 14:00] VITALS: BP_SYST 101; BP_SYST 131; BP_DIAS 59; BP_DIAS 77; TEMP 97.7; TEMP 97.9; O2SAT 95; O2SAT 96
[2023-03-20] MEDS ORDERED: MAG SULF 1GM/100ML (MAG RUN) IV ONE ×2 (16:00)
[2023-03-20 16:04] LABS: HEMATOCRIT 24.5 % (42.0-52.0); HEMOGLOBIN 7.7 g/dl (13.5-17.5)
[2023-03-20] MEDS: ACETAMINOPHEN TAB 650MG DOSE (2X325MG) PO PRN ×2 (20:01→23:59)
[2023-03-20 21:28] LABS: HEMATOCRIT 25.4 % (42.0-52.0); HEMOGLOBIN 8.1 g/dl (13.5-17.5)
[2023-03-20 22:00] VITALS: BP 165/61; TEMP 101.7; O2SAT 93
[2023-03-20] MEDS ORDERED: IBUPROFEN 400MG TAB PO ONE (22:00)
[2023-03-20] MEDS: CALCIUM CARBONATE 500 MG CHEW U/D PO PRN (22:06)
[2023-03-21] VITALS (8 sets, daily range): BP systolic 114–149; BP diastolic 54–75; TEMP 98.6–99.9; O2SAT 95–97
[2023-03-21] MEDS: PIPERACILLIN/TAZOBACTAM SOD 3.375 GM in D5W MINI-BAG PLUS 50 ML IV SCH ×6 (00:46→23:49)
[2023-03-21 03:38] LABS: HEMATOCRIT 23.6 % (42.0-52.0); HEMOGLOBIN 7.2 g/dl (13.5-17.5)
[2023-03-21] MEDS: DOCUSATE SODIUM 100MG CAPSULE PO SCH ×2 (08:05→21:24)
[2023-03-21] MEDS: OMEPRAZOLE 20MG CAP PO SCH (08:06)
[2023-03-21] MEDS: FERROUS SULFATE 325MG TAB PO SCH (08:06)
[2023-03-21] MEDS: CLOPIDOGREL 75 MG TAB PO SCH (08:06)
[2023-03-21] MEDS: ATORVASTATIN 20 MG TAB PO SCH (08:06)
[2023-03-21] MEDS: ASPIRIN 81MG ENTERIC TABLET PO SCH (08:06)
[2023-03-21] MEDS: TAMSULOSIN 0.4 MG CAP PO SCH (08:06)
[2023-03-21] MEDS: INSULIN LISPRO (NovoLOG) PER UNIT SC SCH ×4 (08:07→21:00)
[2023-03-21] MEDS: LEVEMIR (INSULIN DETEMIR) 1 UNITS/0.01ML SC SCH (08:07)
[2023-03-21 08:12] LABS: BASO # 0.1 10^3/uL (0.0-0.2); EOS # 0.2 10^3/uL (0.0-0.5); EOS % 1.4 % (0.0-3.0); HEMATOCRIT 24.2 % (42.0-52.0); HEMOGLOBIN 7.6 g/dl (13.5-17.5); LYMPH # 1.4 10^3/uL (1.5-5.0); MEAN CORPUSCULAR HEMOGLOBIN 27.6 pg (27.0-33.0); MEAN CORPUSCULAR HGB CONC 31.4 g/dl (32.0-36.5); MONO # 1.4 10^3/uL (0.0-0.8); NEUTROPHILS # 9.3 10^3/uL (1.5-8.5); PLATELET COUNT, AUTOMATED 389 10^3/uL (150-450); RED BLOOD COUNT 2.75 10^6/uL (4.30-6.10); WHITE BLOOD COUNT 12.4 10^3/uL (4.0-10.0)
[2023-03-21 08:34] LABS: VANCOMYCIN LEVEL TROUGH 16.4 UG/ML (10.0-20.0)
[2023-03-21 08:36] LABS: BLOOD UREA NITROGEN 15 MG/DL (9-23); CALCIUM LEVEL 8.6 MG/DL (8.3-10.6); CARBON DIOXIDE LEVEL 29 MMOL/L (20-31); CHLORIDE LEVEL 102 MMOL/L (98-107); CREATININE FOR GFR 0.79 MG/DL (0.70-1.30); GLOMERULAR FILTRATION RATE > 60.0 (>49); GLUCOSE, FASTING 196 MG/DL (74-106); MAGNESIUM LEVEL 1.7 MG/DL (1.8-2.4); POTASSIUM SERUM 3.8 MMOL/L (3.5-5.1); SODIUM LEVEL 137 MMOL/L (136-145)
[2023-03-21] MEDS: ACETAMINOPHEN TAB 650MG DOSE (2X325MG) PO PRN ×3 (09:12→21:30)
[2023-03-21] MEDS: VANCOMYCIN HCL 1,000 MG, VIAL MATE ADAPTER 1 EACH in D5W 250 ML IV SCH ×2 (09:21→21:25)
[2023-03-21] MEDS ORDERED: MAG SULF 1GM/100ML (MAG RUN) 1 GM in IV 1 EA IV SCH (10:00)
[2023-03-21] MEDS: ENOXAPARIN 40MG/0.4ML SYRINGE (J1650 PER 10MG) SC SCH (10:35)
[2023-03-21] MEDS: MAG SULF 1GM/100ML (MAG RUN) 1 GM in IV 1 EA IV SCH ×2 (16:28→17:38)
[2023-03-22] MEDS: PIPERACILLIN/TAZOBACTAM SOD 3.375 GM in D5W MINI-BAG PLUS 50 ML IV SCH ×3 (05:53→18:54)
[2023-03-22] MEDS: ACETAMINOPHEN TAB 650MG DOSE (2X325MG) PO PRN ×3 (05:57→20:24)
[2023-03-22 06:00] VITALS: BP 125/73; TEMP 98.4; O2SAT 97
[2023-03-22] MEDS: INSULIN LISPRO (NovoLOG) PER UNIT SC SCH ×4 (08:37→21:00)
[2023-03-22] MEDS: LEVEMIR (INSULIN DETEMIR) 1 UNITS/0.01ML SC SCH (08:37)
[2023-03-22] MEDS: ASPIRIN 81MG ENTERIC TABLET PO SCH (08:38)
[2023-03-22] MEDS: ENOXAPARIN 40MG/0.4ML SYRINGE (J1650 PER 10MG) SC SCH (08:38)
[2023-03-22] MEDS: OMEPRAZOLE 20MG CAP PO SCH (08:38)
[2023-03-22] MEDS: TAMSULOSIN 0.4 MG CAP PO SCH (08:38)
[2023-03-22] MEDS: CLOPIDOGREL 75 MG TAB PO SCH (08:38)
[2023-03-22 09:06] LABS: HEMATOCRIT 24.9 % (42.0-52.0); MEAN CORPUSCULAR HEMOGLOBIN 27.8 pg (27.0-33.0); MEAN CORPUSCULAR HGB CONC 32.1 g/dl (32.0-36.5); MEAN CORPUSCULAR VOLUME 86.5 fl (80.0-96.0); PLATELET COUNT, AUTOMATED 360 10^3/uL (150-450); RED BLOOD COUNT 2.88 10^6/uL (4.30-6.10); WHITE BLOOD COUNT 11.1 10^3/uL (4.0-10.0)
[2023-03-22 09:28] LABS: BLOOD UREA NITROGEN 12 MG/DL (9-23); CALCIUM LEVEL 8.1 MG/DL (8.3-10.6); CARBON DIOXIDE LEVEL 29 MMOL/L (20-31); CHLORIDE LEVEL 104 MMOL/L (98-107); CREATININE FOR GFR 0.71 MG/DL (0.70-1.30); GLOMERULAR FILTRATION RATE > 60.0 (>49); GLUCOSE, FASTING 188 MG/DL (74-106); MAGNESIUM LEVEL 1.6 MG/DL (1.8-2.4); PHOSPHORUS LEVEL 2.8 MG/DL (2.4-5.1); SODIUM LEVEL 138 MMOL/L (136-145)
[2023-03-22] MEDS: VANCOMYCIN HCL 1,000 MG, VIAL MATE ADAPTER 1 EACH in D5W 250 ML IV SCH (09:57)
[2023-03-22] MEDS: DOCUSATE SODIUM 100MG CAPSULE PO SCH ×2 (09:58→20:24)
[2023-03-22] MEDS: ATORVASTATIN 20 MG TAB PO SCH (09:58)
[2023-03-22] MEDS: FERROUS SULFATE 325MG TAB PO SCH (09:58)
[2023-03-22 10:55] LABS: ERYTHROCYTE SEDIMENTATION RATE 91 mm/hr (0-20)
[2023-03-22] MEDS ORDERED: LIDOCAINE 1% MDV 20ML VIAL As Ordered ONE (11:58)
[2023-03-22] MEDS: CALCIUM CARBONATE 500 MG CHEW U/D PO PRN (13:23)
[2023-03-22] MEDS: LOSARTAN 25 MG TAB PO SCH (13:25)
[2023-03-22] MEDS ORDERED: SODIUM CHLORIDE 0.9% INJ 10 ML SYR IV PRN (13:40)
[2023-03-22 14:47] VITALS: BP 158/74; TEMP 97.9; O2SAT 98
[2023-03-22] MEDS: VANCOMYCIN HCL 750 MG, VIAL MATE ADAPTER 1 EACH in D5W 250 ML IV SCH (17:15)
[2023-03-22] MEDS: SODIUM CHLORIDE 0.9% INJ 10 ML SYR IV SCH (18:54)
[2023-03-22 22:00] VITALS: BP 158/76; TEMP 98.6; O2SAT 97
[2023-03-23] MEDS: PIPERACILLIN/TAZOBACTAM SOD 3.375 GM in D5W MINI-BAG PLUS 50 ML IV SCH ×2 (00:22→05:03)
[2023-03-23] MEDS: VANCOMYCIN HCL 750 MG, VIAL MATE ADAPTER 1 EACH in D5W 250 ML IV SCH ×2 (01:35→10:35)
[2023-03-23 06:00] VITALS: BP 158/78; TEMP 99.5; O2SAT 98
[2023-03-23] MEDS: SODIUM CHLORIDE 0.9% INJ 10 ML SYR IV SCH ×2 (06:17→17:52)
[2023-03-23 06:36] LABS: HEMOGLOBIN 7.9 g/dl (13.5-17.5); MEAN CORPUSCULAR HEMOGLOBIN 27.5 pg (27.0-33.0); MEAN CORPUSCULAR HGB CONC 31.6 g/dl (32.0-36.5); MEAN CORPUSCULAR VOLUME 87.1 fl (80.0-96.0); PLATELET COUNT, AUTOMATED 378 10^3/uL (150-450); RED BLOOD COUNT 2.87 10^6/uL (4.30-6.10); WHITE BLOOD COUNT 8.1 10^3/uL (4.0-10.0)
[2023-03-23 07:08] LABS: BLOOD UREA NITROGEN 13 MG/DL (9-23); CALCIUM LEVEL 8.2 MG/DL (8.3-10.6); CARBON DIOXIDE LEVEL 29 MMOL/L (20-31); CHLORIDE LEVEL 103 MMOL/L (98-107); CREATININE FOR GFR 0.74 MG/DL (0.70-1.30); GLOMERULAR FILTRATION RATE > 60.0 (>49); GLUCOSE, FASTING 166 MG/DL (74-106); MAGNESIUM LEVEL 1.7 MG/DL (1.8-2.4); POTASSIUM SERUM 4.1 MMOL/L (3.5-5.1); SODIUM LEVEL 138 MMOL/L (136-145)
[2023-03-23] MEDS ORDERED: MAGNESIUM OXIDE 400MG TAB (MAG-OX) PO ONE (07:55)
[2023-03-23] MEDS: TAMSULOSIN 0.4 MG CAP PO SCH (08:08)
[2023-03-23] MEDS: ASPIRIN 81MG ENTERIC TABLET PO SCH (08:08)
[2023-03-23] MEDS: OMEPRAZOLE 20MG CAP PO SCH (08:08)
[2023-03-23] MEDS: INSULIN LISPRO (NovoLOG) PER UNIT SC SCH ×4 (08:08→20:01)
[2023-03-23] MEDS: ENOXAPARIN 40MG/0.4ML SYRINGE (J1650 PER 10MG) SC SCH (08:08)
[2023-03-23] MEDS: LEVEMIR (INSULIN DETEMIR) 1 UNITS/0.01ML SC SCH (08:08)
[2023-03-23] MEDS: DOCUSATE SODIUM 100MG CAPSULE PO SCH ×2 (08:09→19:34)
[2023-03-23] MEDS: MAG SULF 1GM/100ML (MAG RUN) 1 GM in IV 1 EA IV SCH ×2 (08:09→09:20)
[2023-03-23] MEDS: CLOPIDOGREL 75 MG TAB PO SCH (08:09)
[2023-03-23] MEDS: FERROUS SULFATE 325MG TAB PO SCH (08:09)
[2023-03-23] MEDS: LOSARTAN 25 MG TAB PO SCH (08:09)
[2023-03-23] MEDS: ATORVASTATIN 20 MG TAB PO SCH (08:09)
[2023-03-23] MEDS: AUGMENTIN 875 MG TAB PO SCH ×2 (13:42→19:33)
[2023-03-23 14:00] VITALS: BP 159/78; TEMP 97.9; O2SAT 98
[2023-03-23] MEDS: ACETAMINOPHEN TAB 650MG DOSE (2X325MG) PO PRN (19:33)
[2023-03-24] MEDS: SODIUM CHLORIDE 0.9% INJ 10 ML SYR IV SCH ×2 (05:52→17:12)
[2023-03-24 06:00] VITALS: BP 157/77; TEMP 97.5; O2SAT 96
[2023-03-24 06:18] LABS: HEMATOCRIT 25.8 % (42.0-52.0); MEAN CORPUSCULAR HEMOGLOBIN 27.2 pg (27.0-33.0); MEAN CORPUSCULAR VOLUME 87.8 fl (80.0-96.0); PLATELET COUNT, AUTOMATED 387 10^3/uL (150-450); RED BLOOD COUNT 2.94 10^6/uL (4.30-6.10); WHITE BLOOD COUNT 6.7 10^3/uL (4.0-10.0)
[2023-03-24 06:36] LABS: BLOOD UREA NITROGEN 14 MG/DL (9-23); CALCIUM LEVEL 8.5 MG/DL (8.3-10.6); CARBON DIOXIDE LEVEL 29 MMOL/L (20-31); CHLORIDE LEVEL 104 MMOL/L (98-107); CREATININE FOR GFR 0.67 MG/DL (0.70-1.30); GLOMERULAR FILTRATION RATE > 60.0 (>49); GLUCOSE, FASTING 177 MG/DL (74-106); MAGNESIUM LEVEL 1.8 MG/DL (1.8-2.4); SODIUM LEVEL 138 MMOL/L (136-145)
[2023-03-24] MEDS: AUGMENTIN 875 MG TAB PO SCH ×2 (08:07→19:32)
[2023-03-24] MEDS: ASPIRIN 81MG ENTERIC TABLET PO SCH (08:07)
[2023-03-24] MEDS: FERROUS SULFATE 325MG TAB PO SCH (08:08)
[2023-03-24] MEDS: DOCUSATE SODIUM 100MG CAPSULE PO SCH ×2 (08:08→19:32)
[2023-03-24] MEDS: ATORVASTATIN 20 MG TAB PO SCH (08:08)
[2023-03-24] MEDS: CLOPIDOGREL 75 MG TAB PO SCH (08:08)
[2023-03-24] MEDS: INSULIN LISPRO (NovoLOG) PER UNIT SC SCH ×4 (08:09→19:32)
[2023-03-24] MEDS: LEVEMIR (INSULIN DETEMIR) 1 UNITS/0.01ML SC SCH (08:09)
[2023-03-24] MEDS: ENOXAPARIN 40MG/0.4ML SYRINGE (J1650 PER 10MG) SC SCH (08:10)
[2023-03-24 09:21] LABS: ERYTHROCYTE SEDIMENTATION RATE 72 mm/hr (0-20)
[2023-03-24] MEDS: TAMSULOSIN 0.4 MG CAP PO SCH (09:58)
[2023-03-24] MEDS: LOSARTAN 25 MG TAB PO SCH (10:00)
[2023-03-24] MEDS: OMEPRAZOLE 20MG CAP PO SCH (10:02)
[2023-03-24 14:00] VITALS: BP 157/77; TEMP 97.5; O2SAT 96
[2023-03-24] MEDS: ACETAMINOPHEN TAB 650MG DOSE (2X325MG) PO PRN (19:31)
[2023-03-25] MEDS: SODIUM CHLORIDE 0.9% INJ 10 ML SYR IV SCH ×2 (05:53→17:08)
[2023-03-25 06:00] VITALS: BP 141/63; TEMP 98.1; O2SAT 95
[2023-03-25] MEDS: ENOXAPARIN 40MG/0.4ML SYRINGE (J1650 PER 10MG) SC SCH (07:52)
[2023-03-25] MEDS: ASPIRIN 81MG ENTERIC TABLET PO SCH (07:52)
[2023-03-25] MEDS: TAMSULOSIN 0.4 MG CAP PO SCH (07:52)
[2023-03-25] MEDS: AUGMENTIN 875 MG TAB PO SCH ×2 (07:52→19:49)
[2023-03-25] MEDS: DOCUSATE SODIUM 100MG CAPSULE PO SCH ×2 (07:53→19:49)
[2023-03-25] MEDS: ATORVASTATIN 20 MG TAB PO SCH (07:53)
[2023-03-25] MEDS: FERROUS SULFATE 325MG TAB PO SCH (07:53)
[2023-03-25] MEDS: CLOPIDOGREL 75 MG TAB PO SCH (07:53)
[2023-03-25] MEDS: OMEPRAZOLE 20MG CAP PO SCH (07:53)
[2023-03-25] MEDS: LOSARTAN 25 MG TAB PO SCH (07:56)
[2023-03-25] MEDS: INSULIN LISPRO (NovoLOG) PER UNIT SC SCH ×4 (07:59→19:49)
[2023-03-25] MEDS: LEVEMIR (INSULIN DETEMIR) 1 UNITS/0.01ML SC SCH (07:59)
[2023-03-25 14:00] VITALS: BP 141/63; TEMP 98.1; O2SAT 95
[2023-03-25] MEDS: ACETAMINOPHEN TAB 650MG DOSE (2X325MG) PO PRN (17:14)
[2023-03-26] MEDS: SODIUM CHLORIDE 0.9% INJ 10 ML SYR IV SCH ×2 (05:13→17:58)
[2023-03-26 06:04] VITALS: BP 168/76; TEMP 99; O2SAT 96
[2023-03-26 07:00] VITALS: BP 168/76; TEMP 99; O2SAT 96
[2023-03-26] MEDS: INSULIN LISPRO (NovoLOG) PER UNIT SC SCH ×4 (08:49→20:18)
[2023-03-26] MEDS: LEVEMIR (INSULIN DETEMIR) 1 UNITS/0.01ML SC SCH (08:49)
[2023-03-26] MEDS: ENOXAPARIN 40MG/0.4ML SYRINGE (J1650 PER 10MG) SC SCH (08:49)
[2023-03-26] MEDS: FERROUS SULFATE 325MG TAB PO SCH (08:50)
[2023-03-26] MEDS: CLOPIDOGREL 75 MG TAB PO SCH (08:50)
[2023-03-26] MEDS: DOCUSATE SODIUM 100MG CAPSULE PO SCH ×2 (08:50→20:18)
[2023-03-26] MEDS: ASPIRIN 81MG ENTERIC TABLET PO SCH (08:50)
[2023-03-26] MEDS: AUGMENTIN 875 MG TAB PO SCH ×2 (08:50→20:18)
[2023-03-26] MEDS: OMEPRAZOLE 20MG CAP PO SCH (08:50)
[2023-03-26] MEDS: TAMSULOSIN 0.4 MG CAP PO SCH (08:50)
[2023-03-26] MEDS: ATORVASTATIN 20 MG TAB PO SCH (08:50)
[2023-03-26] MEDS: LOSARTAN 25 MG TAB PO SCH (08:52)
[2023-03-27 05:21] VITALS: BP 140/72; TEMP 98.8; O2SAT 96
[2023-03-27] MEDS ORDERED: AMOX875T2 PO (08:14)
[2023-03-27] MEDS ORDERED: CALC200T15 PO (08:14)
[2023-03-27] MEDS: LEVEMIR (INSULIN DETEMIR) 1 UNITS/0.01ML SC SCH (08:28)
[2023-03-27] MEDS: INSULIN LISPRO (NovoLOG) PER UNIT SC SCH (08:28)
[2023-03-27] MEDS: TAMSULOSIN 0.4 MG CAP PO SCH (08:29)
[2023-03-27] MEDS: FERROUS SULFATE 325MG TAB PO SCH (08:29)
[2023-03-27] MEDS: ASPIRIN 81MG ENTERIC TABLET PO SCH (08:29)
[2023-03-27] MEDS: ENOXAPARIN 40MG/0.4ML SYRINGE (J1650 PER 10MG) SC SCH (08:29)
[2023-03-27 08:30] VITALS: BP 136/70
[2023-03-27] MEDS: LOSARTAN 25 MG TAB PO SCH (08:30)
[2023-03-27] MEDS: ATORVASTATIN 20 MG TAB PO SCH (08:30)
[2023-03-27] MEDS: AUGMENTIN 875 MG TAB PO SCH (08:30)
[2023-03-27] MEDS: CLOPIDOGREL 75 MG TAB PO SCH (08:31)
[2023-03-27] MEDS: OMEPRAZOLE 20MG CAP PO SCH (08:31)
[2023-03-27] MEDS: DOCUSATE SODIUM 100MG CAPSULE PO SCH (08:32)
== END 2023-03-27 11:05 | DRG 317 ==
LOC: M ED 12:47 → M ED INP 16:31 → M MS5PR 03-19 12:30
PROVIDERS: ADMIT Student in an Organized Health Care Education/Training Program; ATTEND Student in an Organized Health Care Education/Training Program
PROC: 0YBN0ZZ Excision of Left Foot, Open Approach (ICD-10-PCS; principal; 2023-03-20 11:30)
PROC: 30233N1 Transfusion of Nonautologous Red Blood Cells into Peripheral Vein, Percutaneous Approach (ICD-10-PCS; 2023-03-21)
PROC: 02HV33Z Insertion of Infusion Device into Superior Vena Cava, Percutaneous Approach (ICD-10-PCS; 2023-03-22)
DX: E11.69 Type 2 diabetes mellitus with other specified complication (principal); M86.8X7 Other osteomyelitis, ankle and foot; E11.51 Type 2 diabetes mellitus with diabetic peripheral angiopathy without gangrene; M00.9 Pyogenic arthritis, unspecified; I10 Essential (primary) hypertension; L97.529 Non-pressure chronic ulcer of other part of left foot with unspecified severity; L03.032 Cellulitis of left toe; I73.9 Peripheral vascular disease, unspecified; E11.622 Type 2 diabetes mellitus with other skin ulcer; E78.5 Hyperlipidemia, unspecified; N40.0 Benign prostatic hyperplasia without lower urinary tract symptoms; K21.9 Gastro-esophageal reflux disease without esophagitis; E11.42 Type 2 diabetes mellitus with diabetic polyneuropathy; D50.9 Iron deficiency anemia, unspecified; Z89.222 Acquired absence of left upper limb above elbow; Z89.412 Acquired absence of left great toe; Z79.82 Long term (current) use of aspirin; Z79.4 Long term (current) use of insulin; Z79.899 Other long term (current) drug therapy; Z20.822 Contact with and (suspected) exposure to COVID-19

== ENCOUNTER → 2023-03-28 | Outpatient (REF) ==
[~2023-03-28] MED LIST changes: +ACET650T61 PO; +AMOX875T2 PO; +ASPI-226 PO; +ATOR80TA59 PO; +CALC200T15 PO; +FERR325T19 PO; +LOSA25TA13 PO; +MAGN400T35 PO; +SF 51.1C MT
[2023-03-28 08:42] LABS: HEMATOCRIT 23.7 % (42.0-52.0); HEMOGLOBIN 7.1 g/dl (13.5-17.5); MEAN CORPUSCULAR HEMOGLOBIN 26.9 pg (27.0-33.0); MEAN CORPUSCULAR VOLUME 89.8 fl (80.0-96.0); PLATELET COUNT, AUTOMATED 246 10^3/uL (150-450); RED BLOOD COUNT 2.64 10^6/uL (4.30-6.10); WHITE BLOOD COUNT 6.8 10^3/uL (4.0-10.0)
[2023-03-28 09:17] LABS: BLOOD UREA NITROGEN 21 MG/DL (9-23); CALCIUM LEVEL 8.6 MG/DL (8.3-10.6); CARBON DIOXIDE LEVEL 26 MMOL/L (20-31); CHLORIDE LEVEL 105 MMOL/L (98-107); CREATININE FOR GFR 0.61 MG/DL (0.70-1.30); GLOMERULAR FILTRATION RATE > 60.0 (>49); GLUCOSE, FASTING 155 MG/DL (74-106); POTASSIUM SERUM 4.1 MMOL/L (3.5-5.1); SODIUM LEVEL 136 MMOL/L (136-145)
== END ==
PROVIDERS: ATTEND Physician Assistant
DX: E11.621 Type 2 diabetes mellitus with foot ulcer (principal); L89.629 Pressure ulcer of left heel, unspecified stage

== ENCOUNTER 2023-03-29 10:11 | Outpatient (CLI) | payer SELFPAY ==
[~2023-03-29 10:11] MED LIST changes: +ACETAMINOPHEN TAB 650MG DOSE (2X325MG) PO SCH; +diphenhydrAMINE 25MG CAP PO SCH
[2023-03-29 10:52] VITALS: BP 132/74
[2023-03-29 11:05] VITALS: BP 130/69
[2023-03-29 12:50] VITALS: BP 157/84
[2023-03-29 13:05] VITALS: BP 148/79
[2023-03-29 14:40] VITALS: BP 147/86
== END 2023-03-29 14:45 ==
LOC: M INFU 10:11
PROVIDERS: ATTEND Physician Assistant
DX: D64.9 Anemia, unspecified (principal)
CPT/HCPCS: 36430; P9016

== ENCOUNTER → 2023-03-29 | Outpatient (CLI) | payer SELFPAY | LOC: M RAD 10:00 | PROVIDERS: ATTEND Surgery Vascular Surgery | DX: I70.262 Atherosclerosis of native arteries of extremities with gangrene, left leg (principal) ==

== ENCOUNTER → 2023-04-02 | Outpatient (REF) ==
[~2023-04-02] MED LIST changes: -ACETAMINOPHEN TAB 650MG DOSE (2X325MG) PO SCH; -diphenhydrAMINE 25MG CAP PO SCH
== END ==
PROVIDERS: ATTEND Physician Assistant
DX: E11.69 Type 2 diabetes mellitus with other specified complication (principal); Z53.8 Procedure and treatment not carried out for other reasons

== ENCOUNTER → 2023-04-04 | Outpatient (REF) | payer SELFPAY ==
[2023-04-04 11:34] LABS: HEMATOCRIT 35.8 % (42.0-52.0); HEMOGLOBIN 11.3 g/dl (13.5-17.5); MEAN CORPUSCULAR HEMOGLOBIN 27.2 pg (27.0-33.0); MEAN CORPUSCULAR HGB CONC 31.6 g/dl (32.0-36.5); MEAN CORPUSCULAR VOLUME 86.3 fl (80.0-96.0); PLATELET COUNT, AUTOMATED 263 10^3/uL (150-450); RED BLOOD COUNT 4.15 10^6/uL (4.30-6.10); WHITE BLOOD COUNT 7.4 10^3/uL (4.0-10.0)
[2023-04-04 12:02] LABS: C REACTIVE PROTEIN QUANTITATIV < 0.40 MG/DL (<1.0)
[2023-04-04 12:03] LABS: ERYTHROCYTE SEDIMENTATION RATE 79 mm/hr (0-20)
[2023-04-04 12:04] LABS: BLOOD UREA NITROGEN 18 MG/DL (9-23); CALCIUM LEVEL 9.2 MG/DL (8.3-10.6); CARBON DIOXIDE LEVEL 27 MMOL/L (20-31); CHLORIDE LEVEL 103 MMOL/L (98-107); CREATININE FOR GFR 0.64 MG/DL (0.70-1.30); GLOMERULAR FILTRATION RATE > 60.0 (>49); GLUCOSE, FASTING 127 MG/DL (74-106); POTASSIUM SERUM 4.1 MMOL/L (3.5-5.1); SODIUM LEVEL 137 MMOL/L (136-145)
== END ==
PROVIDERS: ATTEND Physician Assistant
DX: E11.621 Type 2 diabetes mellitus with foot ulcer (principal); L89.629 Pressure ulcer of left heel, unspecified stage

== ENCOUNTER → 2023-04-05 | Outpatient (REF) | PROVIDERS: ATTEND Physician Assistant | DX: M86.9 Osteomyelitis, unspecified (principal); Z53.8 Procedure and treatment not carried out for other reasons ==

== ENCOUNTER → 2023-04-09 | Outpatient (REF) ==
[2023-04-09 11:37] LABS: HEMOGLOBIN 11.8 g/dl (13.5-17.5); MEAN CORPUSCULAR HEMOGLOBIN 27.5 pg (27.0-33.0); MEAN CORPUSCULAR HGB CONC 31.1 g/dl (32.0-36.5); MEAN CORPUSCULAR VOLUME 88.6 fl (80.0-96.0); PLATELET COUNT, AUTOMATED 235 10^3/uL (150-450); RED BLOOD COUNT 4.29 10^6/uL (4.30-6.10); WHITE BLOOD COUNT 8.2 10^3/uL (4.0-10.0)
== END ==
PROVIDERS: ATTEND Physician Assistant
DX: D64.9 Anemia, unspecified (principal)

== ENCOUNTER → 2023-04-10 | Outpatient (REF) ==
[2023-04-10 16:32] LABS: HEMATOCRIT 35.9 % (42.0-52.0); HEMOGLOBIN 11.3 g/dl (13.5-17.5); MEAN CORPUSCULAR HGB CONC 31.5 g/dl (32.0-36.5); MEAN CORPUSCULAR VOLUME 85.9 fl (80.0-96.0); PLATELET COUNT, AUTOMATED 238 10^3/uL (150-450); RED BLOOD COUNT 4.18 10^6/uL (4.30-6.10)
[2023-04-10 16:43] LABS: ERYTHROCYTE SEDIMENTATION RATE 102 mm/hr (0-20)
[2023-04-10 17:00] LABS: BLOOD UREA NITROGEN 31 MG/DL (9-23); CALCIUM LEVEL 9.1 MG/DL (8.3-10.6); CARBON DIOXIDE LEVEL 27 MMOL/L (20-31); CHLORIDE LEVEL 105 MMOL/L (98-107); CREATININE FOR GFR 0.67 MG/DL (0.70-1.30); GLOMERULAR FILTRATION RATE > 60.0 (>49); GLUCOSE, FASTING 139 MG/DL (74-106); POTASSIUM SERUM 4.1 MMOL/L (3.5-5.1); SODIUM LEVEL 141 MMOL/L (136-145)
[2023-04-10 17:01] LABS: C REACTIVE PROTEIN QUANTITATIV < 0.40 MG/DL (<1.0)
== END ==
PROVIDERS: ATTEND Physician Assistant
DX: M86.9 Osteomyelitis, unspecified (principal)

== ENCOUNTER → 2023-04-16 | Outpatient (REF) ==
[2023-04-16 11:30] LABS: HEMATOCRIT 33.4 % (42.0-52.0); HEMOGLOBIN 10.6 g/dl (13.5-17.5); MEAN CORPUSCULAR HEMOGLOBIN 27.4 pg (27.0-33.0); MEAN CORPUSCULAR HGB CONC 31.7 g/dl (32.0-36.5); MEAN CORPUSCULAR VOLUME 86.3 fl (80.0-96.0); PLATELET COUNT, AUTOMATED 219 10^3/uL (150-450); RED BLOOD COUNT 3.87 10^6/uL (4.30-6.10)
[2023-04-16 11:55] LABS: BLOOD UREA NITROGEN 23 MG/DL (9-23); CALCIUM LEVEL 8.8 MG/DL (8.3-10.6); CARBON DIOXIDE LEVEL 28 MMOL/L (20-31); CHLORIDE LEVEL 105 MMOL/L (98-107); CREATININE FOR GFR 0.75 MG/DL (0.70-1.30); GLOMERULAR FILTRATION RATE > 60.0 (>49); GLUCOSE, FASTING 156 MG/DL (74-106); SODIUM LEVEL 141 MMOL/L (136-145)
[2023-04-16 12:04] LABS: ERYTHROCYTE SEDIMENTATION RATE 69 mm/hr (0-20)
== END ==
PROVIDERS: ATTEND Physician Assistant
DX: M86.9 Osteomyelitis, unspecified (principal)

== ENCOUNTER → 2023-05-02 | Outpatient (REF) | payer SELFPAY ==
[2023-05-02 16:33] LABS: BASO # 0.1 10^3/uL (0.0-0.2); BASO % 1.2 % (0.0-1.0); EOS # 0.3 10^3/uL (0.0-0.5); EOS % 3.7 % (0.0-3.0); HEMATOCRIT 35.3 % (42.0-52.0); HEMOGLOBIN 11.2 g/dl (13.5-17.5); LYMPH # 1.4 10^3/uL (1.5-5.0); LYMPH % 20.6 % (24.0-44.0); MEAN CORPUSCULAR HEMOGLOBIN 27.5 pg (27.0-33.0); MEAN CORPUSCULAR HGB CONC 31.7 g/dl (32.0-36.5); MEAN CORPUSCULAR VOLUME 86.7 fl (80.0-96.0); MONO # 0.6 10^3/uL (0.0-0.8); MONO % 8.3 % (2.0-8.0); NEUTROPHILS # 4.4 10^3/uL (1.5-8.5); NEUTROPHILS % 65.9 % (36.0-66.0); PLATELET COUNT, AUTOMATED 228 10^3/uL (150-450); RED BLOOD COUNT 4.07 10^6/uL (4.30-6.10); WHITE BLOOD COUNT 6.7 10^3/uL (4.0-10.0)
[2023-05-02 17:10] LABS: ALBUMIN 3.7 G/DL (3.2-5.2); ALKALINE PHOSPHATASE 309 U/L (46-116); ALT/SGPT 158 U/L (7.0-40); AST/SGOT 82 U/L (<34); BILIRUBIN,TOTAL 0.9 MG/DL (0.3-1.2); BLOOD UREA NITROGEN 31 MG/DL (9-23); CALCIUM LEVEL 10.3 MG/DL (8.3-10.6); CARBON DIOXIDE LEVEL 24 MMOL/L (20-31); CHLORIDE LEVEL 106 MMOL/L (98-107); CREATININE FOR GFR 0.79 MG/DL (0.70-1.30); GLOMERULAR FILTRATION RATE > 60.0 (>49); GLUCOSE, FASTING 134 MG/DL (74-106); IRON (FE) 43 UG/DL (65-175); PERCENT SATURATION 16.5 % (19.7-50.0); POTASSIUM SERUM 3.9 MMOL/L (3.5-5.1); SODIUM LEVEL 140 MMOL/L (136-145); TOTAL IRON BINDING CAPACITY 261 UG/DL (250-425)
[2023-05-02 17:11] LABS: FERRITIN 1303.9 NG/ML (10.5-307.3)
== END ==
LOC: M SFHCADAM 14:02
PROVIDERS: ATTEND Physician Assistant
DX: E11.621 Type 2 diabetes mellitus with foot ulcer (principal); D50.9 Iron deficiency anemia, unspecified; I73.9 Peripheral vascular disease, unspecified

== ENCOUNTER → 2023-05-31 | Outpatient (REF) | payer SELFPAY ==
[2023-05-31 17:16] LABS: BASO # 0.1 10^3/uL (0.0-0.2); BASO % 1.1 % (0.0-1.0); EOS # 0.2 10^3/uL (0.0-0.5); EOS % 3.9 % (0.0-3.0); HEMATOCRIT 35.2 % (42.0-52.0); HEMOGLOBIN 11.5 g/dl (13.5-17.5); LYMPH # 1.8 10^3/uL (1.5-5.0); LYMPH % 29.5 % (24.0-44.0); MEAN CORPUSCULAR HEMOGLOBIN 28.5 pg (27.0-33.0); MEAN CORPUSCULAR HGB CONC 32.7 g/dl (32.0-36.5); MEAN CORPUSCULAR VOLUME 87.3 fl (80.0-96.0); MONO # 0.6 10^3/uL (0.0-0.8); MONO % 9.1 % (2.0-8.0); NEUTROPHILS # 3.5 10^3/uL (1.5-8.5); NEUTROPHILS % 55.9 % (36.0-66.0); PLATELET COUNT, AUTOMATED 181 10^3/uL (150-450); RED BLOOD COUNT 4.03 10^6/uL (4.30-6.10); WHITE BLOOD COUNT 6.2 10^3/uL (4.0-10.0)
[2023-05-31 17:52] LABS: ALBUMIN 3.8 G/DL (3.2-5.2); ALKALINE PHOSPHATASE 151 U/L (46-116); ALT/SGPT 52 U/L (7.0-40); AST/SGOT 34 U/L (<34); BILIRUBIN,TOTAL 0.9 MG/DL (0.3-1.2); BLOOD UREA NITROGEN 37 MG/DL (9-23); CALCIUM LEVEL 9.3 MG/DL (8.3-10.6); CARBON DIOXIDE LEVEL 27 MMOL/L (20-31); CHLORIDE LEVEL 103 MMOL/L (98-107); CREATININE FOR GFR 0.73 MG/DL (0.70-1.30); GLOMERULAR FILTRATION RATE > 60.0 (>49); GLUCOSE, FASTING 111 MG/DL (74-106); POTASSIUM SERUM 4.4 MMOL/L (3.5-5.1); SODIUM LEVEL 140 MMOL/L (136-145); TOTAL PROTEIN 6.9 G/DL (5.7-8.2)
== END ==
LOC: M SFHCADAM 15:46
PROVIDERS: ATTEND Physician Assistant
DX: R74.8 Abnormal levels of other serum enzymes (principal)

== ENCOUNTER 2023-09-26 17:38 | Emergency (ER) | payer SELFPAY ==
[~2023-09-26] VITALS: Ht 180.3 cm; Wt 72.7 kg
[~2023-09-26 17:38] MED LIST changes: +GLIP5TAB17 PO; -GLIP5TAB8 PO; +PEN-308 SC; -PEN1MIS21 SC
[2023-09-26 22:07] LABS: BASO # 0.1 10^3/uL (0.0-0.2); BASO % 0.8 % (0.0-1.0); EOS # 0.2 10^3/uL (0.0-0.5); EOS % 3.3 % (0.0-3.0); HEMOGLOBIN 12.4 g/dl (13.5-17.5); LYMPH # 1.8 10^3/uL (1.5-5.0); LYMPH % 28.3 % (24.0-44.0); MEAN CORPUSCULAR HEMOGLOBIN 31.1 pg (27.0-33.0); MEAN CORPUSCULAR HGB CONC 34.4 g/dl (32.0-36.5); MEAN CORPUSCULAR VOLUME 90.2 fl (80.0-96.0); MONO # 0.7 10^3/uL (0.0-0.8); MONO % 10.5 % (2.0-8.0); NEUTROPHILS # 3.6 10^3/uL (1.5-8.5); NEUTROPHILS % 56.8 % (36.0-66.0); PLATELET COUNT, AUTOMATED 220 10^3/uL (150-450); RED BLOOD COUNT 3.99 10^6/uL (4.30-6.10); WHITE BLOOD COUNT 6.3 10^3/uL (4.0-10.0)
[2023-09-26 22:30] LABS: ERYTHROCYTE SEDIMENTATION RATE 62 mm/hr (0-20)
[2023-09-26 22:38] LABS: BLOOD UREA NITROGEN 25 MG/DL (9-23); CALCIUM LEVEL 9.1 MG/DL (8.3-10.6); CARBON DIOXIDE LEVEL 25 MMOL/L (20-31); CHLORIDE LEVEL 105 MMOL/L (98-107); GLOMERULAR FILTRATION RATE > 60.0 (>49); GLUCOSE, FASTING 99 MG/DL (74-106); POTASSIUM SERUM 4.8 MMOL/L (3.5-5.1); SODIUM LEVEL 140 MMOL/L (136-145)
[2023-09-26 22:51] VITALS: BP 134/80; TEMP 96.8; O2SAT 98
[2023-09-26] MEDS ORDERED: CEPH500C PO (23:58)
[2023-09-27] MEDS ORDERED: CEPHALEXIN 500 MG CAP PO ONE ×4
== END 2023-09-27 00:24 | disposition home or self-care (01) ==
LOC: M ED 17:38
DX: L03.115 Cellulitis of right lower limb (principal); E11.9 Type 2 diabetes mellitus without complications; I10 Essential (primary) hypertension; E78.5 Hyperlipidemia, unspecified; N40.0 Benign prostatic hyperplasia without lower urinary tract symptoms; K21.9 Gastro-esophageal reflux disease without esophagitis; Z79.4 Long term (current) use of insulin; Z79.899 Other long term (current) drug therapy

== ENCOUNTER → 2023-11-12 | Outpatient (REF) | payer SELFPAY ==
[~2023-11-12] MED LIST changes: +CEPH500C PO; -FLUT50SP17 NARES; +FLUTISP NARES; -INSU100I34 SQ; +INSU100I59 SQ
[2023-11-12 13:17] LABS: BASO # 0.1 10^3/uL (0.0-0.2); BASO % 0.9 % (0.0-1.0); EOS # 0.3 10^3/uL (0.0-0.5); EOS % 5.3 % (0.0-3.0); HEMATOCRIT 36.9 % (42.0-52.0); HEMOGLOBIN 12.2 g/dl (13.5-17.5); LYMPH # 1.6 10^3/uL (1.5-5.0); LYMPH % 29.5 % (24.0-44.0); MEAN CORPUSCULAR HGB CONC 33.1 g/dl (32.0-36.5); MEAN CORPUSCULAR VOLUME 93.9 fl (80.0-96.0); MONO # 0.4 10^3/uL (0.0-0.8); MONO % 6.9 % (2.0-8.0); NEUTROPHILS # 3.1 10^3/uL (1.5-8.5); PLATELET COUNT, AUTOMATED 159 10^3/uL (150-450); RED BLOOD COUNT 3.93 10^6/uL (4.30-6.10); WHITE BLOOD COUNT 5.5 10^3/uL (4.0-10.0)
[2023-11-12 13:20] LABS: IRON (FE) 65 UG/DL (65-175); PERCENT SATURATION 24.8 % (19.7-50.0); TOTAL IRON BINDING CAPACITY 262 UG/DL (250-425)
[2023-11-12 13:21] LABS: ALBUMIN 4.1 G/DL (3.2-5.2); ALKALINE PHOSPHATASE 117 U/L (46-116); ALT/SGPT 38 U/L (7.0-40); AST/SGOT 18 U/L (<34); BILIRUBIN,TOTAL 1.3 MG/DL (0.3-1.2); BLOOD UREA NITROGEN 28 MG/DL (9-23); CALCIUM LEVEL 9.5 MG/DL (8.3-10.6); CARBON DIOXIDE LEVEL 31 MMOL/L (20-31); CHLORIDE LEVEL 106 MMOL/L (98-107); CREATININE FOR GFR 0.72 MG/DL (0.70-1.30); GLOMERULAR FILTRATION RATE > 60.0 (>49); GLUCOSE, FASTING 113 MG/DL (74-106); POTASSIUM SERUM 4.1 MMOL/L (3.5-5.1); PSA SCREENING 0.34 NG/ML (< 4.00); SODIUM LEVEL 140 MMOL/L (136-145); TOTAL PROTEIN 6.9 G/DL (5.7-8.2)
[2023-11-12 13:22] LABS: FERRITIN 787.5 NG/ML (10.5-307.3)
[2023-11-12 13:35] LABS: HEMOGLOBIN A1c 5.4 % (4.0-6.0)
== END ==
LOC: M SFHCADAM 08:40
PROVIDERS: ATTEND Physician Assistant
DX: E11.621 Type 2 diabetes mellitus with foot ulcer (principal); D50.9 Iron deficiency anemia, unspecified; I73.9 Peripheral vascular disease, unspecified; Z12.5 Encounter for screening for malignant neoplasm of prostate
CPT/HCPCS: 80053; 82728; 83036; 83550; 85025; G0103

== ENCOUNTER → 2023-11-15 | Outpatient (REF) | payer SELFPAY | LOC: M SFHCADAM 14:37 | PROVIDERS: ATTEND Physician Assistant | DX: I70.231 Atherosclerosis of native arteries of right leg with ulceration of thigh (principal); E83.42 Hypomagnesemia; E11.621 Type 2 diabetes mellitus with foot ulcer; D50.9 Iron deficiency anemia, unspecified ==

== ENCOUNTER → 2024-06-03 | Outpatient (REF) | payer SELFPAY ==
[2024-06-03 12:45] LABS: HEMATOCRIT 38.5 % (42.0-52.0); HEMOGLOBIN 12.7 g/dl (13.5-17.5); MEAN CORPUSCULAR HEMOGLOBIN 31.1 pg (27.0-33.0); MEAN CORPUSCULAR VOLUME 94.1 fl (80.0-96.0); PLATELET COUNT, AUTOMATED 261 10^3/uL (150-450); RED BLOOD COUNT 4.09 10^6/uL (4.30-6.10); WHITE BLOOD COUNT 7.5 10^3/uL (4.0-10.0)
[2024-06-03 12:48] LABS: BLOOD UREA NITROGEN 24 MG/DL (9-23); CALCIUM LEVEL 10.1 MG/DL (8.3-10.6); CARBON DIOXIDE LEVEL 26 MMOL/L (20-31); CHLORIDE LEVEL 106 MMOL/L (98-107); CHOLESTEROL LEVEL 191 MG/DL (<200); CHOLESTEROL RISK RATIO 4.09 (<5); CREATININE FOR GFR 0.67 MG/DL (0.70-1.30); GLOMERULAR FILTRATION RATE > 60.0 (>49); GLUCOSE, FASTING 122 MG/DL (74-106); HDL CHOLESTEROL 46.6 MG/DL (>40); LDL CHOLESTEROL 129.4 MG/DL (<100); MAGNESIUM LEVEL 1.6 MG/DL (1.8-2.4); NON-HDL-C 144.4 MG/DL; POTASSIUM SERUM 4.4 MMOL/L (3.5-5.1); SODIUM LEVEL 139 MMOL/L (136-145); TRIGLYCERIDES LEVEL 75 MG/DL (<150)
[2024-06-03 13:33] LABS: HEMOGLOBIN A1c 5.8 % (4.0-6.0)
== END ==
LOC: M SFHCADAM 10:25
PROVIDERS: ATTEND Physician Assistant
DX: I70.231 Atherosclerosis of native arteries of right leg with ulceration of thigh (principal); E83.42 Hypomagnesemia; E11.621 Type 2 diabetes mellitus with foot ulcer; D50.9 Iron deficiency anemia, unspecified

== ENCOUNTER → 2024-06-04 | Outpatient (REF) | payer SELFPAY | LOC: M SFHCDERM 16:30 | PROVIDERS: ATTEND Physician Assistant | DX: L97.512 Non-pressure chronic ulcer of other part of right foot with fat layer exposed (principal) ==

== ENCOUNTER → 2024-08-05 | Outpatient (REF) | payer SELFPAY | LOC: M LABDRWAD 17:28 | PROVIDERS: ATTEND Physician Assistant | DX: I70.239 Atherosclerosis of native arteries of right leg with ulceration of unspecified site (principal); I70.249 Atherosclerosis of native arteries of left leg with ulceration of unspecified site ==

== ENCOUNTER → 2024-08-06 | Outpatient (REF) | payer SELFPAY ==
[2024-08-06 14:22] LABS: CREATININE FOR GFR 0.62 MG/DL (0.70-1.30); GLOMERULAR FILTRATION RATE > 60.0 (>49)
== END ==
LOC: M LABDRWAD 13:08
PROVIDERS: ATTEND Physician Assistant
DX: I70.239 Atherosclerosis of native arteries of right leg with ulceration of unspecified site (principal); I70.249 Atherosclerosis of native arteries of left leg with ulceration of unspecified site

== ENCOUNTER → 2024-10-28 | Outpatient (REF) | payer SELFPAY | LOC: M SFHCDERM 13:37 | PROVIDERS: ATTEND Physician Assistant | DX: L97.512 Non-pressure chronic ulcer of other part of right foot with fat layer exposed (principal); M86.8X7 Other osteomyelitis, ankle and foot ==

== ENCOUNTER → 2024-11-11 | Outpatient (REF) | payer SELFPAY ==
[2024-11-11 15:12] LABS: ALBUMIN 3.8 G/DL (3.2-5.2); ALKALINE PHOSPHATASE 141 U/L (40-129); ALT/SGPT 26 U/L (7.0-40); AST/SGOT 18 U/L (<34); BILIRUBIN,TOTAL 0.7 MG/DL (0.3-1.2); BLOOD UREA NITROGEN 26 MG/DL (9-23); CALCIUM LEVEL 10.5 MG/DL (8.3-10.6); CARBON DIOXIDE LEVEL 26 MMOL/L (20-31); CHLORIDE LEVEL 100 MMOL/L (98-107); CHOLESTEROL LEVEL 320 MG/DL (<200); CHOLESTEROL RISK RATIO 7.94 (<5); CREATININE FOR GFR 0.77 MG/DL (0.70-1.30); GLOMERULAR FILTRATION RATE > 60.0 (>49); GLUCOSE, FASTING 110 MG/DL (74-106); HDL CHOLESTEROL 40.3 MG/DL (>40); LDL CHOLESTEROL 258.7 MG/DL (<100); NON-HDL-C 279.7 MG/DL; POTASSIUM SERUM 5.3 MMOL/L (3.5-5.1); SODIUM LEVEL 140 MMOL/L (136-145); TOTAL PROTEIN 7.5 G/DL (5.7-8.2); TRIGLYCERIDES LEVEL 105 MG/DL (<150)
== END ==
LOC: M SFHCADAM 09:37
PROVIDERS: ATTEND Physician Assistant
DX: I73.9 Peripheral vascular disease, unspecified (principal); E78.2 Mixed hyperlipidemia

== ENCOUNTER → 2024-12-02 | Outpatient (REF) | payer SELFPAY | LOC: M LAB REF 16:08 | PROVIDERS: ATTEND Podiatrist | DX: L03.031 Cellulitis of right toe (principal) ==

== ENCOUNTER → 2025-09-23 | Outpatient (REF) | payer OTHER ==
[~2025-09-23] MED LIST changes: -EQL50TAB2 PO; -FLOM0.4C39 PO; +TAMS-18 PO; +VITA1TAB82 PO
[2025-09-23 14:31] LABS: BASO # 0.1 10^3/uL (0.0-0.2); BASO % 1.4 % (0.0-1.0); EOS # 1.1 10^3/uL (0.0-0.5); EOS % 14.6 % (0.0-3.0); LYMPH # 1.6 10^3/uL (1.5-5.0); LYMPH % 21.4 % (24.0-44.0); MONO # 0.6 10^3/uL (0.0-0.8); MONO % 8.4 % (2.0-8.0); NEUTROPHILS # 4.0 10^3/uL (1.5-8.5); NEUTROPHILS % 53.8 % (36.0-66.0); PLATELET COUNT, AUTOMATED 182 10^3/uL (150-450)
[2025-09-23 14:34] LABS: PSA SCREENING 0.41 NG/ML (< 4.00)
[2025-09-23 14:38] LABS: FREE T4 1.38 NG/DL (0.89-1.76)
[2025-09-23 14:39] LABS: ALT/SGPT 27 U/L (7.0-40); AST/SGOT 16 U/L (<34); CALCIUM LEVEL 9.6 MG/DL (8.3-10.6); CARBON DIOXIDE LEVEL 26 MMOL/L (20-31); CHLORIDE LEVEL 103 MMOL/L (98-107); CHOLESTEROL LEVEL 368 MG/DL (<200); CHOLESTEROL RISK RATIO 9.48 (<5); CREATININE FOR GFR 0.92 MG/DL (0.70-1.30); GLOMERULAR FILTRATION RATE > 90.0 (>49); LDL CHOLESTEROL 290.4 MG/DL (<100); NON-HDL-C 329.2 MG/DL; POTASSIUM SERUM 4.3 MMOL/L (3.5-5.1); SODIUM LEVEL 141 MMOL/L (136-145); TRIGLYCERIDES LEVEL 194 MG/DL (<150)
[2025-09-23 14:53] LABS: ESTIMATED AVERAGE GLUCOSE 200.0 MG/DL (60-110)
== END ==
LOC: M SFHCADAM 09:36
PROVIDERS: ATTEND Physician Assistant
DX: I10 Essential (primary) hypertension (principal); K22.70 Barrett's esophagus without dysplasia; E78.00 Pure hypercholesterolemia, unspecified; I73.9 Peripheral vascular disease, unspecified; Z91.199 Patient's noncompliance with other medical treatment and regimen due to unspecified reason